=== PATIENT | female | born 1940 | race Caucasian/White ===

== ENCOUNTER → 2022-01-19 | Outpatient (CLI) | payer MEDICARE ==
--- NOTE | 2022-01-19 21:43 | CT ---
EXAMINATION TYPE: CT chest wo con DATE OF EXAM: 01/19/2022 COMPARISON: None available HISTORY: dyspnea CT DLP: 967.3 mGycm. Automated Exposure Control for Dose Reduction was Utilized. TECHNIQUE: CT scan of the thorax is performed without IV contrast using high-resolution technique wi th supine and prone imaging. FINDINGS: Central airways are normal course and caliber. No focal consolidations, pleural effusions, or pneumot horax. No areas of interlobular septal thickening or honeycombing. Small area of persistent groundgla ss opacity on prone and supine imaging in the left lower lobe which is still favored to represent ate lectasis. Cardiac size appears within normal limits. No pericardial effusion. Moderate coronary artery calcific ations. There are aortic annular and mitral annular calcifications. Moderate scattered atheroscleroti c calcifications of the thoracic aorta which appears of normal caliber. Main pulmonary artery appears of normal caliber. No mediastinal or axillary lymphadenopathy. IMPRESSION: 1. No evidence of interstitial lung disease. 2. No focal consolidation, pleural effusion, or pneumothorax.
== END | disposition home or self-care (01) ==
LOC: RADCTMAIN 17:07
PROVIDERS: ATTEND Internal Medicine Critical Care Medicine
DX: R06.00 Dyspnea, unspecified (principal)
CPT/HCPCS: 71250

== ENCOUNTER → 2023-02-23 | Outpatient (CLI) | payer MEDICARE ==
--- NOTE | 2023-02-24 06:53 | MM ---
Reason for Exam: Screening (asymptomatic). Last mammogram was performed 2 year(s) and 1 month(s) ago. Patient History: Menarche at age 12. First Full-Term at age 15. Left ovary removed at age 20. Postmenopausal. Breast cancer, left, age 72. 2011, Lumpectomy on the Left side. 2011, Radiation Therapy on the left side. Maternal grandmother had breast cancer, age 50. Prior Study Comparison: 06/13/2018 Bilateral Screening Mammogram, Unknown. 07/19/2019 Bilateral Screening Mammogram, Unknown. 01/26/2021 Bilateral Screening Mammogram, [place]. Tissue Density: There are scattered fibroglandular densities. Findings: Analyzed By CAD. Diminished size to the left breast with distortion superiorly consistent with known posttreatment changes redemonstrated. There are benign-appearing round, linear, and vascular calcifications bilaterally redemonstrated. Stable few small round and oval circumscribed masses in the right breast from several prior mammograms. There is no suspicious group of microcalcifications or new suspicious or enlarging mass in either breast. Overall Assessment: Benign, BI-RAD 2 Management: Screening Mammogram of both breasts in 1 year. . Patient should continue monthly self-breast exams. A clinical breast exam by your physician is recommended on an annual basis. This exam should not preclude additional follow-up of suspicious palpable abnormalities. Note on Marilee scores and lifetime risk: 1. A Marilee score greater than 3% is considered moderate risk. If this is the case, consider specialist referral to assess eligibility for a risk reducing agent. 2. If overall lifetime risk for the development of breast cancer is 20% or higher, the patient may qualify for future screening with alternating mammogram and breast MRI. Electronically signed and approved by: Edinson Alvarado M.D.
== END | disposition home or self-care (01) ==
LOC: RADMAMWWP 10:51
PROVIDERS: ATTEND Family Medicine
DX: Z12.31 Encounter for screening mammogram for malignant neoplasm of breast (principal); Z80.3 Family history of malignant neoplasm of breast; Z78.0 Asymptomatic menopausal state
CPT/HCPCS: 77063; 77067

== ENCOUNTER 2024-03-20 09:46 | Day surgery (SDC) | payer MEDICARE ==
[~2024-03-20 09:46] MED LIST: ALPRAZolam 0.5 MG TAB PO PRN; HEPARIN SODIUM,PORCINE (1 ML) 2,500 UNIT in SODIUM CHLORIDE 0.9% 250 ML IRRIGATION PRN; HEPARIN SODIUM,PORCINE 10,000 UNIT in SODIUM CHLORIDE 0.9% 1,000 ML IRRIGATION PRN; NITROGLYCERIN SL TABS 0.4 MG TAB SUBLINGUAL PRN
[2024-03-20] MEDS: SODIUM CHLORIDE 0.9% 1,000 ML in EMPTY BAG 1 BAG IV SCH (10:09)
[2024-03-20] MEDS: ASPIRIN 325 MG TAB PO STA (10:10)
[2024-03-20] MEDS: IV FLUID CONTINUATION 1,000 ML IV ONE ×2 (10:14→11:48)
[2024-03-20 11:17] LABS: Basophils % (A) 1 %; Eosinophils # (A) 0.4 k/uL (0-0.7); Eosinophils % (A) 4 %; HCT 44.8 % (34.0-46.0); HGB 14.4 gm/dL (11.4-16.0); Lymphocytes # (A) 2.7 k/uL (1.0-4.8); Lymphocytes % (A) 31 %; MCH 29.2 pg (25.0-35.0); MCHC 32.2 g/dL (31.0-37.0); MCV 90.6 fL (80.0-100.0); Monocytes # (A) 0.8 k/uL (0-1.0); Monocytes % (A) 9 %; Neutrophils # (A) 4.3 k/uL (1.3-7.7); Neutrophils % (A) 51 %; Platelet Count 116 k/uL (150-450); Poikilocytosis Slight; RBC 4.94 m/uL (3.80-5.40); RDW 14.6 % (11.5-15.5); WBC 8.5 k/uL (3.8-10.6)
[2024-03-20 11:21] LABS: African American GFR (CKD) 61 (>60 ml/min/1.73 sqM); Anion Gap 9 mmol/L; Blood Urea Nitrogen 17 mg/dL (7-17); Calcium 9.9 mg/dL (8.4-10.2); Carbon Dioxide 26 mmol/L (22-30); Chloride 105 mmol/L (98-107); Glucose 121 mg/dL (74-99); Non-African American GFR(CKD) 53 (>60 ml/min/1.73 sqM); Potassium 3.7 mmol/L (3.5-5.1); Sodium 140 mmol/L (137-145)
[2024-03-20] MEDS ORDERED: LIDOCAINE 1% INJ 10MG/ML (20 ML MDV) ONE (11:34)
[2024-03-20] MEDS ORDERED: VERAPAMIL 2.5 MG/ML 2 ML AMP ONE ×2 (11:34→12:41)
[2024-03-20] MEDS ORDERED: HEPARIN SODIUM 1,000 UN/ML (10ML VL) ONE (11:35)
[2024-03-20] MEDS ORDERED: fentaNYL (PF) 50 MCG/ML 2 ML AMP ONE ×2 (11:35→12:47)
[2024-03-20] MEDS: fentaNYL (PF) 50 MCG/1 ML VIAL IVP ONE ×2 (11:44→11:45)
[2024-03-20] MEDS: BENZOCAINE SPRAY 1 CAN MUCOUS MEM ONE (11:44)
[2024-03-20] MEDS: MIDAZOLAM 2 MG/2 ML VIAL IVP ONE ×3 (11:44→11:49)
--- NOTE | 2024-03-20 12:00 | P.TEE ---
Description of Procedure(s): Procedure performed: Transesophageal Echocardiogram with color flow doppler, pulsed wave doppler and continuous wave doppler, moderate conscious sedation Moderate conscious sedation: Moderate conscious sedation was supplied with direct supervision of myself using Versed and Fentanyl. Complications: none Indications: Aortic stenosis PROCEDURE: After the risks, benefits and alternatives of the above mentioned procedure was explained in detail with the patient, informed consent was obtained. Patient was brought to the lab in a fasting state. Patient was given IV Versed and Fentanyl for sedation. The throat was sprayed with Hurricane to anesthetize the throat. A lubricated Omni probe was then introduced into the esophagus and stomach and multiple views were obtained. 2D echo with color flow doppler, pulsed wave doppler and continuous wave doppler was utilized. Agitated saline bubbles were injected to assess for any intra-atrial shunt. The probe was then removed. Patient tolerated the procedure well. Patient was transferred to the post procedure area in stable and satisfactory condition. FINDINGS: 1. The aortic valve is tricuspid with severe aortic stenosis with aortic valve area 0.6 cm2 by planimetry. 2. The mitral valve appears be normal with mild regurgitation. 3. Tricuspid valve appears to be normal. 4. The interatrial septum is intact. No evidence of PFO. 5. Left atrial appendage is free of clot. 6. Left ventricular EF 55%
[2024-03-20] MEDS: LIDOCAINE 1% INJ 10MG/ML (20 ML MDV) SQ ONE (12:06)
[2024-03-20] MEDS: VERAPAMIL SYRINGE (5 MG/10 ML) INTRAARTER ONE ×2 (12:09→12:53)
[2024-03-20] MEDS: HEPARIN SODIUM 1,000 UN/ML (10ML VL) IV ONE (12:10)
[2024-03-20] MEDS: IOPAMIDOL-370 100ML BTL INJ ONE ×2 (12:38→13:32)
[2024-03-20] MEDS: fentaNYL (PF) 50 MCG/ML 2 ML AMP IVP ONE (12:49)
[2024-03-20] MEDS: PHENYLEPHRINE-0.9% NACL SYG 1,000 MCG/10 ML SYRINGE IVP ONE (12:57)
[2024-03-20] MEDS ORDERED: ACETAMINOPHEN TAB 325 MG TAB PO PRN (14:13)
[2024-03-20] MEDS ORDERED: MAG HYDROX/AL HYDROX/SIMETH 30 ML CUP PO PRN (14:16)
[2024-03-20] MEDS ORDERED: ATROPINE SULFATE 0.1 MG/ML 10ML SYRINGE IV PRN (14:16)
[2024-03-20] MEDS ORDERED: ZOLPIDEM 5 MG TAB PO PRN (14:16)
[2024-03-20] MEDS ORDERED: RX INFO: IV CONTRAST WAS GIVEN 1 EACH MISC MISCELLANE PRN (14:16)
--- NOTE | 2024-03-20 16:01 | P.PRCINT ---
Percutaneous Coronary Int. - Percutaneous Coronary Intervention Percutaneous Coronary Intervention: PROCEDURES PERFORMED: Bilateral coronary angiography, ultrasound guided arterial access, iFR left main, IVUS left main, PCI left main with a 4.5 x 12mm Xience TOBY, post dilated with a 4.5mm NC balloon INDICATION: Severe aortic stenosis, high risk for surgery, worsening dyspnea over last 6-8 weeks, NYHA class 3 symptoms. CONSENT:I have discussed the risks, benefits and alternative therapies for the above-mentioned procedure and for both sedation/analgesia as well as necessary blood product administration, if indicated, as they pertain to this patient. The patient has indicated understanding and acceptance of the risks and procedures discussed. PROCEDURE: After the risks, benefits and alternatives of the above mentioned procedure explained in detail with the patient, informed consent was obtained. Patient was taken to the catheterization lab and prepped and draped in usual fashion. Ultrasound guidance was used to assess for arterial access. 1% lidocaine was used to anesthetize the right radial artery. A 6-Gambian sheath was placed in the right radial artery using modified Seldinger technique and ultrasound guidance. Right coronary angiography was performed with a 5-Gambian FR5 catheter in various views. there was significant difficulty engaging the left main with a FL 3.5, FL 3.0, CLS 3.5, CLS 3.0 and [place] catheter. Subselective images were obtained. Eventually able to engage with the help of a BMW wire and a 6-Gambian FL 3.0 guide. Images showed a significant 90% left main stenosis. Given patient is high risk for surgery, worsening unstable symptoms in the last few weeks, difficulty previously engaging the left main and currently left main is engaged with a wire in the LAD as well as the lesion being ostial left main amenable to stenting, the decision was made to perform PCI. Heparin was given. The decision was made to perform iFR for confirmation. A 0.014 pressure wire was advanced in the proximal left main and normalize. It was then advanced 1 cm distal end of LAD and was noted to be abnormal at 0.77. Next balloon angioplasty was performed of the left main with a 3.0 noncompliant balloon. Intervascular ultrasound was performed which showed continued significant stenosis despite angioplasty with a minimal luminal area of 3.7 mm. Reference vessel is 4.5 mm diameter. Therefore balloon angioplasty was performed with a 4.0 noncompliant balloon. Next a 4.5 x 12 mm Xience TOBY was placed at the origin of the left main. The stent was then postdilated with a 4.5 noncompliant balloon. Repeat intervascular ultrasound showed well-expanded stent with no significant residual stenosis. Final angiograms were performed. Per intervention there is 90% stenosis and RADHA-3 flow and postintervention there was less than 10% stenosis with RADHA 3 flow. The right radial sheath was removed and a TR band was placed with hemostasis achieved. The patient tolerated the procedure well. Patient was transported back to the post catheterization holding area in stable condition. Conscious Sedation: Patient was monitored under the direct supervision of myself for conscious sedation using Versed and fentanyl for a total duration of 88 minutes HEMODYNAMICS: Ao: 93/61 SELECTIVE CORONARY ARTERIOGRAPHY: LEFT MAIN: The left main is a large caliber vessel which trifurcates into the LAD, ramus and circumflex. There is an ostial left main 90% stenosis. LEFT ANTERIOR DESCENDING CORONARY ARTERY: LAD is a large caliber vessel which wraps around to the apex. There are mild luminal irregularities with a 20% mid LAD stenosis. RAMUS INTERMEDIUS: The ramus is a moderate caliber vessel with mild luminal irregularities LEFT CIRCUMFLEX CORONARY ARTERY: Left circumflex is a moderate caliber vessel with mild luminal irregularites RIGHT CORONARY ARTERY: The right coronary artery is a large caliber vessel which gives off a PDA and PLV branch and is the dominant vessel. There is diffuse calcification with 10-20% stenosis FINAL IMPRESSION: 1. CAD as described above with 90% left main stenosis and otherwise mild luminal irregularities. 2. Abnormal iFR left main and IVUS left main 3. S/p PCI left main with a 4.5 x 12mm Xience TOBY, post dilated with a 4.5mm NC balloon PLAN: 1. Aggressive risk factor modification per most recent ACC/AHA guidelines. 2. Continue dual antiplatelets with aspirin and Plavix for 6 months 3. Further workup for TAVR
[2024-03-20] MEDS: carvediloL 12.5 MG TAB PO SCH (16:18)
[2024-03-20] MEDS: SODIUM CHLORIDE 0.9% 1,000 ML IV SCH (16:18)
[2024-03-20] MEDS ORDERED: PRAVASTATIN SODIUM 40 MG TAB PO SCH (21:00)
[2024-03-21] MEDS: DAPAGLIFLOZIN PROPANEDIOL 10 MG TABLET PO SCH (08:30)
[2024-03-21] MEDS: ASPIRIN 81 MG PO SCH (08:30)
[2024-03-21] MEDS: ATORVASTATIN 40 MG TAB PO SCH (08:30)
[2024-03-21] MEDS: FUROSEMIDE 20 MG TAB PO SCH (08:30)
[2024-03-21] MEDS: CLOPIDOGREL 75 MG TAB PO SCH (08:30)
[2024-03-21] MEDS: LOSARTAN 50 MG TAB PO SCH (08:30)
[2024-03-21] MEDS: PANTOPRAZOLE 40 MG TABLET PO SCH (08:30)
[2024-03-21] MEDS: allopurinoL 100 MG TAB PO SCH (08:30)
[2024-03-21] MEDS: ALPRAZolam 0.25 MG TAB PO PRN (08:32)
[2024-03-21 10:24] LABS: African American GFR (CKD) 75 (>60 ml/min/1.73 sqM); Anion Gap 9 mmol/L; Blood Urea Nitrogen 14 mg/dL (7-17); Calcium 8.9 mg/dL (8.4-10.2); Carbon Dioxide 23 mmol/L (22-30); Chloride 108 mmol/L (98-107); Glucose 123 mg/dL (74-99); Non-African American GFR(CKD) 65 (>60 ml/min/1.73 sqM); Potassium 3.6 mmol/L (3.5-5.1); Sodium 140 mmol/L (137-145)
[2024-03-21 11:01] LABS: Basophils % (A) 0 %; Eosinophils # (A) 0.2 k/uL (0-0.7); Eosinophils % (A) 4 %; HCT 39.6 % (34.0-46.0); HGB 12.6 gm/dL (11.4-16.0); Lymphocytes # (A) 1.6 k/uL (1.0-4.8); Lymphocytes % (A) 25 %; MCH 29.8 pg (25.0-35.0); MCHC 31.8 g/dL (31.0-37.0); MCV 93.6 fL (80.0-100.0); Mean Platelet Volume 8.6; Monocytes # (A) 0.5 k/uL (0-1.0); Monocytes % (A) 8 %; Neutrophils # (A) 3.8 k/uL (1.3-7.7); Neutrophils % (A) 60 %; RBC 4.23 m/uL (3.80-5.40); RDW 14.5 % (11.5-15.5); WBC 6.3 k/uL (3.8-10.6)
[2024-03-21 11:33] VITALS: BP 166/91; PULSE 72; RESP 18; TEMP 98
[2024-03-21] MEDS: FUROSEMIDE 10 MG/ML 4 ML VIAL IV STA (11:34)
[2024-03-21 11:50] VITALS: BMI 35.1
--- NOTE | 2024-03-21 13:12 | US ---
EXAMINATION TYPE: US carotid duplex BILAT DATE OF EXAM: 03/21/2024 COMPARISON: NONE CLINICAL INDICATION: Female, 83 years old with history of Preop TAVR; Hx TIA TECHNIQUE: Carotid duplex ultrasound examination. Indirect Doppler criteria was utilized. FINDINGS: EXAM MEASUREMENTS: RIGHT: Peak Systolic Velocity (PSV) cm/sec ----- Right CCA: 46.2 ----- Right ICA: 81.2 ----- Right ECA: 129.1 ICA/CCA ratio: 1.8 RIGHT: End Diastole cm/sec ----- Right CCA: 0.0 ----- Right ICA: 18.6 ----- Right ECA: 0.0 LEFT: Peak Systolic Velocity (PSV) cm/sec ----- Left CCA: 34.8 ----- Left ICA: 84.9 ----- Left ECA: 186.5 ICA/CCA ratio: 2.4 LEFT: End Diastole cm/sec ----- Left CCA: 7.8 ----- Left ICA: 26.7 ----- Left ECA: 13.7 VERTEBRALS (direction of flow): Right Vertebral: Antegrade Left Vertebral: Antegrade Rhythm: Normal FEATHER SAWYER NOTES: Plaque in bilateral bulbs extending into proximal ICA and ECA. Elevated left ECA velocity. IMPRESSION: Less than 50% stenosis of the bilateral carotid bifurcations. Criteria for Assigning % of Stenosis / Diameter reduction (Estimation based on the indirect measurements of the internal carotid artery velocities (ICA PSV). 1. Normal (no stenosis)=ICA PSV < 125 cm/s: ratio < 2.0: ICA EDV<40 cm/s. 2. Less than 50% stenosis=ICA PSV < 125 cm/s: ratio < 2.0: ICA EDV<40 cm/s. 3. 50 to 69% stenosis=ICA PSV of 125 to 230 cm/s: ration 2.0 ? 4.0: ICA EDV 40-100 cm/s. 4. Greater than 70% stenosis to near occlusion= ICA PSV > 230 cm/s: ratio > 4.0: ICA EDV > 100 cm/s. 5. Near occlusion= ICA PSV velocities may be low or undetectable: variable ratio and ICA EDV. 6. Total occlusion=unable to detect flow.
[2024-03-21 13:19] LABS: Platelet Count 94 k/uL (150-450)
[2024-03-21 13:45] LABS: ALT 14 U/L (4-34); AST 24 U/L (14-36); African American GFR (CKD) 60 (>60 ml/min/1.73 sqM); Albumin 3.8 g/dL (3.5-5.0); Alkaline Phosphatase 37 U/L (38-126); Anion Gap 6 mmol/L; Blood Urea Nitrogen 14 mg/dL (7-17); Calcium 8.8 mg/dL (8.4-10.2); Carbon Dioxide 24 mmol/L (22-30); Chloride 109 mmol/L (98-107); Glucose 161 mg/dL (74-99); INR 1.1 (<1.2); Non-African American GFR(CKD) 52 (>60 ml/min/1.73 sqM); Partial Thromboplastin Time 26.1 sec (22.0-30.0); Prothrombin Time 11.6 sec (10.0-12.5); Sodium 139 mmol/L (137-145); Total Bilirubin 1.1 mg/dL (0.2-1.3); Total Protein 6.1 g/dL (6.3-8.2)
[2024-03-21 13:49] LABS: Magnesium 1.6 mg/dL (1.6-2.3); Potassium 3.6 mmol/L (3.5-5.1)
[2024-03-21 13:54] LABS: NT-Pro-B-Type Natriuretic Pept 1910 pg/mL
--- NOTE | 2024-03-21 14:32 | XR ---
EXAMINATION TYPE: XR chest 2V DATE OF EXAM: 03/21/2024 1:33 PM CLINICAL INDICATION:Female, 83 years old with history of Preop TAVR; COMPARISON: None TECHNIQUE: XR chest 2V Frontal and lateral views of the chest. FINDINGS: Lungs/Pleura: No evidence of focal consolidation or pneumothorax. Blunting of the costophrenic angles is present posteriorly. Pulmonary vascularity: Mild pulmonary vascular congestion. Heart/mediastinum: Cardiomediastinal silhouette is unremarkable. Musculoskeletal: No acute osseous pathology. Other findings: None Lines/Tubes: IMPRESSION: Pulmonary vascular congestion with trace bilateral pleural effusions.
--- NOTE | 2024-03-21 15:03 | P.DS ---
Providers Attending physician: Anthony Son DO Consults: 03/20/24 14:17 Consult Physician Routine Consulting Provider: [facility] Consult Reason/Comments: Post Interventional Patient Do you want consulting provider notified?: Already Contacted Primary care physician: Bjorn Glass [facility] Hospital Course: Patient is a pleasant 83 yo female with history of severe and underwent JUANA which showed severe and LHC which showed left main severe stenosis and underwent ostial left main stenting. She was given IVF for renal protection hwoever became mildly SOB 03/21 morning and therefore was given additional IV Lasix which improved symtptoms. She was stable for DC 03/21 with outpt followup for TAVR Plan - Discharge Summary Discharge Rx Participant: No New Discharge Prescriptions: New Aspirin 81 mg PO DAILY #90 tab Continue Clopidogrel [Plavix] 75 mg PO DAILY carvediloL 12.5 mg PO BID Olmesartan [Benicar] 20 mg PO DAILY Acetaminophen [Tylenol] 325 mg PO Q4H PRN PRN Reason: Pain Pravastatin Sodium [Pravachol] 40 mg PO HS No Action allopurinoL 100 mg PO DAILY Furosemide [Lasix] 20 mg PO DAILY Calcium (Unk) 1 tab PO DAILY Vit K2(Unk) 1 tab PO DAILY Vit D (Unk) 1 tab PO DAILY Omeprazole 20 mg PO DAILY Fish Oil (Unk) 1 tab PO DAILY Dapagliflozin Propanediol [Farxiga] 10 mg PO DAILY Aspirin 325 mg PO ONCE Discharge Medication List Acetaminophen [Tylenol] 325 mg PO Q4H PRN 03/18/24 [History] Calcium (Unk) 1 tab PO DAILY 03/18/24 [History] Clopidogrel [Plavix] 75 mg PO DAILY 03/18/24 [History] Dapagliflozin Propanediol [Farxiga] 10 mg PO DAILY 03/18/24 [History] Fish Oil (Unk) 1 tab PO DAILY 03/18/24 [History] Furosemide [Lasix] 20 mg PO DAILY 03/18/24 [History] Olmesartan [Benicar] 20 mg PO DAILY 03/18/24 [History] Omeprazole 20 mg PO DAILY 03/18/24 [History] Pravastatin Sodium [Pravachol] 40 mg PO HS 03/18/24 [History] Vit D (Unk) 1 tab PO DAILY 03/18/24 [History] Vit K2(Unk) 1 tab PO DAILY 03/18/24 [History] allopurinoL 100 mg PO DAILY 03/18/24 [History] carvediloL 12.5 mg PO BID 03/18/24 [History] Aspirin 325 mg PO ONCE 03/20/24 [History] Aspirin 81 mg PO DAILY #90 tab 03/21/24 [Rx] Follow up Appointment(s)/Referral(s): Anthony Son DO [STAFF PHYSICIAN] - 1 Week (appt on 03/27/24 @ 11am with Lore) Patient Instructions/Handouts: Moderate Sedation (DC), After Radial Heart Catheterization (GEN), Transesophageal Echocardiogram (DC) Activity/Diet/Wound Care/Special Instructions: *NO LIFTING, PUSHING, OR PULLING ANYTHING OVER 5 POUNDS FOR 5 DAYS *NO DRIVING FOR 3 DAYS *YOU CAN REMOVE YOUR DRESSING TOMORROW BUT DO NOT SUBMERSE YOUR PUNCTURE SITE IN WATER FOR A FEW DAYS TO PREVENT INFECTION - SO NO TUB BATHS, POOLS, HOT TUBS, DISHES...ETC *ANY SIGNS OF BLEEDING (HARDNESS, SWELLING, OR EXCESSIVE BRUISING) HOLD DIRECT PRESSURE ON YOUR PUNCTURE SITE AND COME TO THE NEAREST EMERGENCY ROOM TO GET YOUR PUNCTURE SITE LOOKED AT - DO NOT DRIVE YOURSELF! EITHER CALL EMS OR HAVE SOMEONE DRIVE YOU!
[2024-03-21 19:33] LABS: Hepatitis A Antibody IgM Nonreactive (Nonreactive); Hepatitis B Core IgM Nonreactive (Nonreactive); Hepatitis B Surface Antigen Nonreactive (Nonreactive); Hepatitis C IgG Antibody Nonreactive (Nonreactive)
== END 2024-03-21 17:59 | disposition home or self-care (01) ==
LOC: CATHCVL 09:46 → 3SCARD 13:29 → CATHCVL 03-21 17:59
PROVIDERS: ATTEND Internal Medicine
DX: I25.10 Atherosclerotic heart disease of native coronary artery without angina pectoris (principal); I35.0 Nonrheumatic aortic (valve) stenosis; J90 Pleural effusion, not elsewhere classified; Z79.02 Long term (current) use of antithrombotics/antiplatelets; Z79.82 Long term (current) use of aspirin; Z79.84 Long term (current) use of oral hypoglycemic drugs; Z79.899 Other long term (current) drug therapy; Z86.73 Personal history of transient ischemic attack (TIA), and cerebral infarction without residual deficits; Z95.5 Presence of coronary angioplasty implant and graft
CPT/HCPCS: 94150; 93312; 93320; 93325; 92978; 93454; 93799; 83880; 80053; 80048 ×2; 80074; 84443; 83735; 85025 ×2; 85610; 85730; 87070; 83036; 71046; 93880; C9600; C1769 ×5; C1887 ×3; C1894; C1874; C1725 ×3; J2250; J1940; J2001; J3010 ×2; J1644; Q9967; J2371

== ENCOUNTER → 2024-04-02 | Outpatient (CLI) | payer MEDICARE ==
[2024-04-02 15:12] LABS: African American GFR (CKD) 48 (>60 ml/min/1.73 sqM); Blood Urea Nitrogen 20 mg/dL (7-17); Non-African American GFR(CKD) 42 (>60 ml/min/1.73 sqM)
== END | disposition home or self-care (01) ==
LOC: RADCTMAIN 14:03
PROVIDERS: ATTEND Thoracic Surgery (Cardiothoracic Vascular Surgery)
DX: I35.1 Nonrheumatic aortic (valve) insufficiency (principal)
CPT/HCPCS: 82565; 84520

== ENCOUNTER 2024-04-11 08:32 | Outpatient (CLI) | payer MEDICARE ==
[2024-04-11 09:36] LABS: African American GFR (CKD) 58 (>60 ml/min/1.73 sqM); Blood Urea Nitrogen 15 mg/dL (7-17); Non-African American GFR(CKD) 50 (>60 ml/min/1.73 sqM)
--- NOTE | 2024-04-11 13:31 | CT ---
EXAMINATION TYPE: CT TAVR Planning DATE OF EXAM: 04/11/2024 HISTORY: Non Rheumatic aortic valve insufficiency CT DLP: 2496.1 mGycm Automated Exposure Control for Dose Reduction was Utilized. CONTRAST: CT scan of the chest, abdomen and pelvis is performed without and with IV Contrast, patient injected with 125 ml mL of Isovue 370. COMPARISON: The TECHNIQUE: Helical imaging obtained through the chest, abdomen and pelvis during arterial phase arelis gaye administration of radiographic contrast intravenously. FINDINGS: See report from [facility] regarding preprocedural planning CHEST: Lower Neck and Thyroid: No significant findings Lungs: Mild right basilar compressive atelectasis. Incidental azygos lobe and fissure. Central Airway: No significant findings Pleura: Small right-sided pleural effusion. Pulmonary Arteries: No significant findings Heart and Pericardium: Mild cardiomegaly. Lymph Nodes: No significant findings Mediastinum & Esophagus: No significant findings AV Calcification Severity: Moderate ABDOMEN/PELVIS: Please note arterial phase of the imaging limits detailed evaluation of the solid abdominal organs. Liver: No significant findings Spleen: No significant findings Kidneys: No significant findings Adrenal Glands: No significant findings Pancreas: No significant findings Gallbladder: No significant findings Bowel and Mesentery: No significant findings Lymph Nodes: No significant findings Urinary Bladder: No significant findings Pelvic Organs: Septated cystic mass right ovary and adnexa measuring 10.5 cm in greatest dimension. I n a patient of this age. Neoplasm is not excluded. The uterus is atrophic. No left ovarian masses see n. Other: No significant findings Other Lines/Tubes/Devices/Hardware: None IMPRESSION: 1. Moderate calcific changes of the aortic valve. 2.Septated cystic mass right ovary and adnexa measuring 10.5 cm in greatest dimension. In a patient o f this age. Neoplasm is not excluded.
== END 2024-04-11 15:30 | disposition home or self-care (01) ==
LOC: RADCTMAIN 08:32
PROVIDERS: ATTEND Thoracic Surgery (Cardiothoracic Vascular Surgery)
DX: I35.1 Nonrheumatic aortic (valve) insufficiency (principal); N83.201 Unspecified ovarian cyst, right side
CPT/HCPCS: 82565; 84520; 71275; 74174; Q9967

== ENCOUNTER → 2024-05-03 | Outpatient (CLI) | payer MEDICARE | END | disposition home or self-care (01) | LOC: LABWHC1 14:42 | PROVIDERS: ATTEND Family Medicine | DX: Z01.812 Encounter for preprocedural laboratory examination (principal); I35.0 Nonrheumatic aortic (valve) stenosis; Z79.01 Long term (current) use of anticoagulants; Z79.899 Other long term (current) drug therapy | CPT/HCPCS: 36415; 80053; 85025; 85610; 85730; 86850; 86900; 86901 ==

== ENCOUNTER 2024-05-08 05:47 | Inpatient (IN) | payer MEDICARE ==
[2024-05-08] MEDS ORDERED: LIDOCAINE 1% INJ 10MG/ML (20 ML MDV) ONE (07:51)
[2024-05-08] MEDS ORDERED: PROPOFOL 10 MG/ML 20 ML VIAL IV ONE (07:51)
[2024-05-08] MEDS ORDERED: MIDAZOLAM 2 MG/2 ML VIAL ONE (07:51)
[2024-05-08] MEDS ORDERED: HEPARIN SODIUM,PORCINE 10,000 UNIT/ML 1 ML VIAL ONE (07:51)
[2024-05-08] MEDS ORDERED: ROCURONIUM 10 MG/ML (5 ML VIAL) IV ONE (07:51)
[2024-05-08] MEDS ORDERED: PROTAMINE SULFATE 10 MG/ML 5 ML VIAL ONE (07:51)
[2024-05-08] MEDS ORDERED: fentaNYL (PF) 50 MCG/ML 2 ML AMP ONE (07:51)
[2024-05-08] MEDS ORDERED: VASOPRESSIN 20 UNIT/ML 1 ML VIAL ONE (07:51)
[2024-05-08] MEDS ORDERED: NEOSTIGMINE 1 MG/ML 10 ML VIAL ONE (07:51)
[2024-05-08] MEDS ORDERED: SUCCINYLCHOLINE CHLORIDE 200 MG/10 ML VIAL IV ONE (07:51)
[2024-05-08] MEDS ORDERED: GLYCOPYRROLATE 0.2 MG/ML 2 ML VIAL ONE (07:51)
[2024-05-08] MEDS: IOPAMIDOL-370 100ML BTL INJ ONE (08:24)
[2024-05-08] MEDS ORDERED: DAPAGLIFLOZIN PROPANEDIOL 10 MG TABLET ONE (18:02)
[2024-05-08] MEDS ORDERED: PRAVASTATIN SODIUM 20 MG TAB ONE (20:18)
[2024-05-08] MEDS ORDERED: HEPARIN SODIUM,PORCINE 5,000 UNIT/ML 1 ML VIAL ONE (20:18)
[2024-05-08] MEDS ORDERED: carvediloL 12.5 MG TAB ONE (20:18)
[2024-05-08] MEDS ORDERED: SENNOSIDES-DOCUSATE SODIUM 1 EACH TAB PO ONE (20:18)
[2024-05-08] MEDS ORDERED: ACETAMINOPHEN TAB 325 MG TAB ONE (20:18)
[2024-05-08] MEDS ORDERED: ceFAZolin 1,000 MG VIAL ONE (23:59)
[2024-05-08] MEDS ORDERED: LACTATED RINGERS 1,000 ML BAG ONE (23:59)
[2024-05-08] MEDS ORDERED: SODIUM CHLORIDE 0.9% 50 ML BAG IV ONE (23:59)
[2024-05-09] MEDS ORDERED: fentaNYL (PF) 50 MCG/ML 2 ML AMP ONE (02:31)
[2024-05-09] MEDS ORDERED: LIDOCAINE 1% INJ 10MG/ML (20 ML MDV) ONE (02:31)
[2024-05-09] MEDS ORDERED: MIDAZOLAM 2 MG/2 ML VIAL ONE (02:34)
[2024-05-09] MEDS ORDERED: HEPARIN SODIUM,PORCINE 5,000 UNIT/ML 1 ML VIAL ONE ×3 (05:44→20:49)
[2024-05-09] MEDS ORDERED: ACETAMINOPHEN TAB 325 MG TAB ONE ×2 (06:04→10:54)
[2024-05-09] MEDS ORDERED: DAPAGLIFLOZIN PROPANEDIOL 10 MG TABLET ONE (10:03)
[2024-05-09] MEDS ORDERED: FUROSEMIDE 20 MG TAB ONE (10:03)
[2024-05-09] MEDS ORDERED: PANTOPRAZOLE 40 MG TABLET PO ONE (10:03)
[2024-05-09] MEDS ORDERED: CLOPIDOGREL 75 MG TAB ONE (10:03)
[2024-05-09] MEDS ORDERED: ASPIRIN 81 MG ONE (10:03)
[2024-05-09] MEDS ORDERED: allopurinoL 100 MG TAB ONE (10:24)
[2024-05-09] MEDS ORDERED: ALPRAZolam 0.25 MG TAB ONE ×2 (10:43→20:49)
[2024-05-09] MEDS ORDERED: SENNOSIDES-DOCUSATE SODIUM 1 EACH TAB PO ONE (20:49)
[2024-05-09] MEDS ORDERED: LOSARTAN 50 MG TAB ONE (23:59)
[2024-05-09] MEDS ORDERED: ceFAZolin 1,000 MG VIAL ONE (23:59)
[2024-05-09] MEDS ORDERED: PRAVASTATIN SODIUM 20 MG TAB ONE (23:59)
[2024-05-09] MEDS ORDERED: SODIUM CHLORIDE 0.9% 50 ML BAG IV ONE (23:59)
[2024-05-10] MEDS ORDERED: POTASSIUM CHLORIDE ER 20 MEQ TAB.ER PO ONE ×2 (05:38→23:59)
[2024-05-10] MEDS ORDERED: FUROSEMIDE 10 MG/ML 4 ML VIAL ONE (09:03)
[2024-05-10] MEDS ORDERED: LIDOCAINE 1% INJ 10MG/ML (20 ML MDV) ONE ×2 (10:38→11:24)
[2024-05-10] MEDS ORDERED: fentaNYL (PF) 50 MCG/ML 2 ML AMP ONE ×2 (10:56→11:35)
[2024-05-10] MEDS ORDERED: MIDAZOLAM 2 MG/2 ML VIAL ONE (10:56)
[2024-05-10] MEDS ORDERED: HEPARIN SODIUM,PORCINE 5,000 UNIT/ML 1 ML VIAL ONE ×2 (21:20→23:59)
[2024-05-10] MEDS ORDERED: carvediloL 12.5 MG TAB ONE (21:20)
[2024-05-10] MEDS ORDERED: ACETAMINOPHEN TAB 325 MG TAB ONE ×2 (22:55→23:59)
[2024-05-10] MEDS ORDERED: LOSARTAN 50 MG TAB ONE (23:59)
[2024-05-10] MEDS ORDERED: PRAVASTATIN SODIUM 20 MG TAB ONE (23:59)
[2024-05-10] MEDS ORDERED: IPRATROPIUM-ALBUTEROL 3 ML NEB ONE (23:59)
[2024-05-10] MEDS ORDERED: PANTOPRAZOLE 40 MG TABLET PO ONE (23:59)
[2024-05-10] MEDS ORDERED: CLOPIDOGREL 75 MG TAB ONE (23:59)
[2024-05-10] MEDS ORDERED: DAPAGLIFLOZIN PROPANEDIOL 10 MG TABLET ONE (23:59)
[2024-05-10] MEDS ORDERED: ASPIRIN 81 MG ONE (23:59)
[2024-05-10] MEDS ORDERED: allopurinoL 100 MG TAB ONE (23:59)
[2024-05-11] MEDS ORDERED: HEPARIN SODIUM,PORCINE 5,000 UNIT/ML 1 ML VIAL ONE ×3 (06:08→19:58)
[2024-05-11] MEDS ORDERED: LOSARTAN 50 MG TAB ONE ×2 (08:46→23:59)
[2024-05-11] MEDS ORDERED: PRAVASTATIN SODIUM 20 MG TAB ONE (08:46)
[2024-05-11] MEDS ORDERED: allopurinoL 100 MG TAB ONE (08:47)
[2024-05-11] MEDS ORDERED: ASPIRIN 81 MG ONE (08:47)
[2024-05-11] MEDS ORDERED: carvediloL 12.5 MG TAB ONE ×2 (08:47→19:58)
[2024-05-11] MEDS ORDERED: DAPAGLIFLOZIN PROPANEDIOL 10 MG TABLET ONE (08:47)
[2024-05-11] MEDS ORDERED: CLOPIDOGREL 75 MG TAB ONE (08:47)
[2024-05-11] MEDS ORDERED: PANTOPRAZOLE 40 MG TABLET PO ONE (08:47)
[2024-05-11] MEDS ORDERED: FUROSEMIDE 20 MG TAB ONE (08:47)
[2024-05-11] MEDS ORDERED: ACETAMINOPHEN TAB 325 MG TAB ONE (12:27)
[2024-05-11] MEDS ORDERED: FERROUS SULFATE 325 MG TAB PO ONE (19:58)
[2024-05-11] MEDS ORDERED: ASCORBIC ACID 500 MG TAB ONE (19:58)
[2024-05-11] MEDS ORDERED: SENNOSIDES-DOCUSATE SODIUM 1 EACH TAB PO ONE (20:24)
[2024-05-11] MEDS ORDERED: IPRATROPIUM-ALBUTEROL 3 ML NEB ONE ×2 (23:59)
[2024-05-12] MEDS ORDERED: ACETAMINOPHEN TAB 325 MG TAB ONE ×3 (00:54→20:42)
[2024-05-12] MEDS ORDERED: HEPARIN SODIUM,PORCINE 5,000 UNIT/ML 1 ML VIAL ONE ×3 (06:20→20:42)
[2024-05-12] MEDS ORDERED: IPRATROPIUM-ALBUTEROL 3 ML NEB ONE ×3 (07:50→23:59)
[2024-05-12] MEDS ORDERED: PANTOPRAZOLE 40 MG TABLET PO ONE (08:58)
[2024-05-12] MEDS ORDERED: ASCORBIC ACID 500 MG TAB ONE ×2 (08:58→20:42)
[2024-05-12] MEDS ORDERED: CLOPIDOGREL 75 MG TAB ONE (08:58)
[2024-05-12] MEDS ORDERED: PRAVASTATIN SODIUM 20 MG TAB ONE (08:58)
[2024-05-12] MEDS ORDERED: LOSARTAN 50 MG TAB ONE ×2 (08:58→23:59)
[2024-05-12] MEDS ORDERED: ASPIRIN 81 MG ONE (08:58)
[2024-05-12] MEDS ORDERED: allopurinoL 100 MG TAB ONE (08:59)
[2024-05-12] MEDS ORDERED: FERROUS SULFATE 325 MG TAB PO ONE ×2 (08:59→20:42)
[2024-05-12] MEDS ORDERED: FUROSEMIDE 20 MG TAB ONE (08:59)
[2024-05-12] MEDS ORDERED: carvediloL 12.5 MG TAB ONE ×2 (08:59→20:42)
[2024-05-12] MEDS ORDERED: DAPAGLIFLOZIN PROPANEDIOL 10 MG TABLET ONE (08:59)
[2024-05-13] MEDS ORDERED: ACETAMINOPHEN TAB 325 MG TAB ONE (01:55)
[2024-05-13] MEDS ORDERED: IPRATROPIUM-ALBUTEROL 3 ML NEB ONE (05:09)
[2024-05-13] MEDS ORDERED: HEPARIN SODIUM,PORCINE 5,000 UNIT/ML 1 ML VIAL ONE (05:16)
[2024-05-13] MEDS ORDERED: ASCORBIC ACID 500 MG TAB ONE (08:27)
[2024-05-13] MEDS ORDERED: bisacodyL 10 MG SUPP RECTAL ONE ×2 (08:28→08:59)
[2024-05-13] MEDS ORDERED: FUROSEMIDE 10 MG/ML 4 ML VIAL ONE (08:28)
[2024-05-13] MEDS ORDERED: PANTOPRAZOLE 40 MG TABLET PO ONE (08:28)
[2024-05-13] MEDS ORDERED: POTASSIUM CHLORIDE ER 20 MEQ TAB.ER PO ONE (08:28)
[2024-05-13] MEDS ORDERED: LOSARTAN 50 MG TAB ONE ×2 (08:28→08:36)
[2024-05-13] MEDS ORDERED: ASPIRIN 81 MG ONE ×2 (08:28→08:31)
[2024-05-13] MEDS ORDERED: PRAVASTATIN SODIUM 20 MG TAB ONE (08:28)
[2024-05-13] MEDS ORDERED: CLOPIDOGREL 75 MG TAB ONE (08:28)
[2024-05-13] MEDS ORDERED: carvediloL 12.5 MG TAB ONE (08:29)
[2024-05-13] MEDS ORDERED: FERROUS SULFATE 325 MG TAB PO ONE (08:29)
[2024-05-13] MEDS ORDERED: allopurinoL 100 MG TAB ONE (08:29)
[2024-05-13] MEDS ORDERED: DAPAGLIFLOZIN PROPANEDIOL 10 MG TABLET ONE (08:29)
--- NOTE | 2024-06-05 15:13 | XR ---
Patient Tami Mejia ID [id number] Order # EXAMINATION TYPE: XR chest 1V DATE OF EXAM: 05/08/2024 COMPARISON: No comparison on downtime PACS INDICATION: Post TAVR TECHNIQUE: Single frontal view of the chest is obtained. FINDINGS: The heart size is mildly prominent. Post TAVR is evident. The pulmonary vasculature is somewhat prominent. The lungs are clear. No suspicious consolidations. IMPRESSION: 1. Correlate for mild volume overload. 2. Mild cardiomegaly. 3. Post aortic valve replacement, TAVR
--- NOTE | 2024-06-11 07:53 | XR ---
Patient Tami Mejia ID [id number] Order # EXAMINATION TYPE: XR chest 1V DATE OF EXAM: 05/10/2024 COMPARISON: No comparison available on downtime PACS. INDICATION: post TAVR TECHNIQUE: Single frontal view of the chest is obtained. FINDINGS: The heart size is normal. The pulmonary vasculature is normal. Some mild increased lung markings at the left base. Correlate for atelectasis. Early pneumonia could be considered. Post aortic valve replacement evident. IMPRESSION: 1. Mild increased lung markings at the left base. Correlate for atelectasis or early pneumonia. Follo w-up can be performed. 2. Status post TAVR
--- NOTE | 2024-06-11 09:26 | XR ---
Site ID [facility] Patient Tami Mejia ID [id number] Order # Procedure CXR 1V EXAMINATION TYPE: XR chest 1V DATE OF EXAM: 05/09/2024 9:23 AM CLINICAL INDICATION: Post-R COMPARISON: THIS EXAM WAS READ DURING PACS DOWNTIME, NO PRIORS AVAILABLE. TECHNIQUE: XR chest 1V Frontal view of the chest. FINDINGS: Lungs/Pleura: There is no evidence of pleural effusion, focal consolidation, or pneumothorax. Pulmonary vascularity: Minimal interstitial prominence. Heart/mediastinum: Cardiomediastinal silhouette is unremarkable. Post aortic valve repair changes. Musculoskeletal: No acute osseous pathology. IMPRESSION: Postop Changes with mild pulmonary edema.
--- NOTE | 2024-06-11 13:35 | XR ---
Patient: Tami Mejia Ordering Physician: Unknown, Unknown ID: [id number] Phone, Pager: Phone: N/A Pager: N/A : [phone] Age/Gender: 83Y, F Primary Location: N/A Procedure: CHEST-1V Study Taz e: 05/13/2024 6:59:00 AM EXAMINATION TYPE: XR chest 1V DATE OF EXAM: 05/14/2024 HISTORY: Shortness of breath. COMPARISON: None. TECHNIQUE: Single view of the chest is submitted. FINDINGS: Demonstrated are scattered senescent parenchymal change. Increased density left medial lung base which may reflect atelectasis or pneumonia. The heart is stable. Hilar and mediastinal structures are within normal limits. Degenerative changes are seen of the dorsal spine. IMPRESSION: 1. Increased density left medial lung base which may reflect atelectasis or pneumonia.
--- NOTE | 2024-06-11 15:43 | XR ---
Patient Tami Mejia ID [id number] Order # EXAMINATION TYPE: XR chest 2V DATE OF EXAM: 05/11/2024 COMPARISON: No comparison available on downtime PACS. INDICATION: Lead placement check TECHNIQUE: Frontal and lateral views of the chest are obtained. FINDINGS: The heart size is normal. The pulmonary vasculature is somewhat prominent. There is likely lower lobe infiltrate. Small anterior pleural effusions present on the lateral projec tion. There is placement of a pacemaker with 2 leads which have normal orientation. Prior TAVR. IMPRESSION: 1. Correlate for underlying overload. 2. Small pleural effusion and posterior infiltrate. Follow-up recommended. 3. No pneumothorax post pacemaker placement.
--- NOTE | 2024-06-11 15:52 | XR ---
Patient Tami Mejia ID [id number] Order # EXAMINATION TYPE: XR chest 1V portable DATE OF EXAM: 05/10/2024 COMPARISON: No comparison available on downtime PACS. INDICATION: Line placement TECHNIQUE: Single frontal view of the chest is obtained. FINDINGS: The heart size is mildly prominent. The pulmonary vasculature is prominent. There is a infiltrate in the right apex. Correlate for pneumonia. Pacemaker overlies left chest. 2 leads are present typical appearance. There is a prior TAVR. IMPRESSION: 1. Correlate provided overload and CHF. 2. Left upper lobe infiltrate. Correlate for pneumonia. 3. No pneumothorax. Left-sided 2-lead pacemaker with typical orientation.
--- NOTE | 2024-06-14 14:31 | P.OP ---
Date of Procedure: 05/08/24 Preoperative Diagnosis: Tricuspid calcific aortic stenosis Postoperative Diagnosis: Same Procedure(s) Performed: Transcatheter aortic valve replacement via percutaneous right transfemoral approach with 26 mm Hancock STAR S3 valve Implants: 26 mm Hancock STAR 3 valve Anesthesia: GETA Surgeon: Gael Gooden (Cardiovascular surgeon) Rotary Swaging Machine Operator #1: Romero Luna (First clam treader) Rotary Swaging Machine Operator #2: Anthony Son (Second clam treader) Estimated Blood Loss (ml): 20 IV fluids (ml): 1,000 Urine output (ml): 0 Pathology: none sent Condition: stable Disposition: PACU Indications for Procedure: 83-year-old female with symptomatic severe tricuspid aortic stenosis. She was seen in the high risk valve clinic and felt to be appropriate for transcatheter aortic valve replacement after workup. She was felt to be high risk for surgical aortic valve replacement. Elective procedure was scheduled. Operative Findings: There was an approximately 45 mm gradient across the aortic valve. Valve was heavily calcified. TAVR valve was deployed at 7030. This proceeded uneventfully. Postoperative JUANA showed good expansion of the valve with no evidence of paravalvular leak and no aortic insufficiency had minimal gradient. Completion angiography showed excellent closure of the right femoral artery. Description of Procedure: Patient was brought to the cardiac catheterization laboratory and placed supine on the table. General anesthesia was induced. Patient was intubated. JUANA probe was placed. Patient was appropriately positioned. The anterior torso and bilateral groins were sterilely prepped and draped. Bilateral femoral arterial access was obtained by Dr. Son under ultrasound guidance. On the right a 7 Paragu[place] sheath was placed. On the left a long 6 [place] sheath was advanced into the descending thoracic aorta and through this a pigtail catheter was advanced into the right coronary sinus of Valsalva. A left femoral venous sheath was placed and a transvenous pacer was advanced into the apex of the right ventricle. 2 Perclose devices were placed in the right femoral artery and this was upsized to an 8 [place]aguayan sheath. This was further upsized to a 14 [place] sheath over a stiff wire and the patient was systemically heparinized. ACT's were maintained greater than 250 during procedure. Aortic valve was crossed from the right and a pigtail catheter positioned at the apex of the ventricle. Transvalvular gradients were measured. A safari wire was placed at the apex of the ventricle. A 26 STAR 3 valve had been prepared on the back table and was brought up onto the field. It was advanced through the sheath over the wire into the descending thoracic aorta. The balloon was pulled back into the valve and positioned appropriately. The catheter was curved and brought around the ascending aorta and across the aortic valve. Pusher was pulled back. The valve was positioned appropriately across the root of the aorta with the help of root angiography through the pigtail. The valve was then deployed under rapid ventricular pacing. This proceeded uneventfully. On completion of the valve deployment, pacer was turned down and the deployment system was pulled back through the valve into the descending thoracic aorta. The valve was eexamined with JUANA with findings as noted above. We decided to except the deployment of the valve. The valve deployment system was removed from the sheath. Heparin was reversed with protamine. The sheath was removed and the right femoral artery sealed with the 2 Perclose devices. Completion angiography demonstrated good flow through the femoral artery with no evidence of leak and no narrowing. Temporary pacer was removed. The left femoral sheath was removed and the artery sealed with a 8 Angio-Seal. Femoral venous line was removed and controlled with direct pressure. Patient was awakened and transferred to recovery in stable condition.
--- NOTE | 2024-06-21 08:46 | PTCA ---
PERCUTANEOUSTRANS CORORONARY ANGIOGRAPHY PROCEDURES PERFORMED: 1. Successful transcatheter aortic valve replacement using 26 mm Justin Hancock valve with an excellent result. 2. Ultrasound-guided access of the right and left common femoral arteries and left common femoral vein. 3. Adjunctive use of transesophageal echocardiogram. PERFORMING PHYSICIANS: 1. Romero Luna MD, section plotter operator. 2. Anthony Son DO, section plotter operator. 3. Dr. Gael Gooden, cardiothoracic surgeon. INDICATION: Symptomatic 83-year-old female patient who was diagnosed recently with aortic stenosis. The symptoms, she was experiencing shortness of breath consistent with NYHA class II. APPROACH: Bilateral common femoral arteries and left common femoral vein. COMPLICATIONS: None. LEVEL OF SEDATION: The procedure was performed under general anesthesia. PROCEDURE DESCRIPTION: After obtaining an informed consent, the patient was brought to the cardiac laboratory sampler. The left common femoral artery was cannulated using micropuncture technique under ultrasound guidance. The micropuncture wire passed easily. Then, we placed a 6-Welsh 23 cm sheath at the left common femoral artery. Subsequently, the left common femoral vein was cannulated using micropuncture technique under ultrasound guidance and the micropuncture wire passed easily. Then, we placed a 6-Welsh 23 cm sheath in the left common femoral vein. Subsequently, under fluoroscopic guidance, a balloon-tipped pacer wire was advanced to the right ventricle apex. The pacer wire was set up to be used during the procedure. Subsequently, a pigtail catheter was advanced through the left femoral artery sheath all the way to the aortic root for injection. Subsequently, the right common femoral artery was cannulated using micropuncture technique under ultrasound guidance. The micropuncture wire passed easily. Subsequently, we deployed 2 Perclose at the 11 o'clock and 2 o'clock, and then we did upgrade the sheath into an 8-Welsh 11 cm sheath and subsequently exchanged this sheath into a 14-Welsh sheath, which was Hancock sheath, under fluoroscopic guidance and over a stiff wire. That was a Safari wire. At that point, anticoagulation was initiated using heparin with continuous ACT monitoring. Subsequently, we did an aortic root angiogram, and then we did cross the aortic valve using 0.035 straight wire with the backup support of AL1 catheter. Subsequently, the AL1 catheter was exchanged into a pigtail catheter for simultaneous gradient, and the gradient in term of mean was significant, almost 40 mmHg. Subsequently, we did prep the valve, and then the valve was advanced through the 14- Welsh sheath under fluoroscopic guidance. The valve was deployed with adjunctive use of pacing and under fluoroscopic guidance. Transesophageal echocardiogram subsequently showed no evidence of any perivalvular leak, and the procedure was completed with no complication. The right common femoral artery hemostasis was achieved using 2 Perclose with a good hemostasis documented by angiogram, and the left common femoral artery hemostasis was performed using Angio-Seal. The procedure was completed with no complication. POSTPROCEDURE MANAGEMENT: Monitor the patient for the next 24 hours. Possible discharge home in the next 24 hours if the echo shows no significant abnormalities. Follow up with the patient. MMODL / IJN: [id number] /
== END 2024-05-13 13:43 | disposition home or self-care (01) | DRG 267 ==
LOC: 3SCARD 05:47
PROVIDERS: ADMIT Thoracic Surgery (Cardiothoracic Vascular Surgery); ATTEND Thoracic Surgery (Cardiothoracic Vascular Surgery)
PROC: B246ZZ4 Ultrasonography of Right and Left Heart, Transesophageal (ICD-10-PCS; 2024-05-08)
PROC: B3101ZZ Fluoroscopy of Thoracic Aorta using Low Osmolar Contrast (ICD-10-PCS; 2024-05-08)
PROC: 5A1223Z Performance of Cardiac Pacing, Continuous (ICD-10-PCS; 2024-05-08)
PROC: 02RF38Z Replacement of Aortic Valve with Zooplastic Tissue, Percutaneous Approach (ICD-10-PCS; principal; 2024-05-08 08:24)
DX: I35.0 Nonrheumatic aortic (valve) stenosis (principal); Z00.6 Encounter for examination for normal comparison and control in clinical research program; F05 Delirium due to known physiological condition; I50.32 Chronic diastolic (congestive) heart failure; Z88.1 Allergy status to other antibiotic agents; Z88.8 Allergy status to other drugs, medicaments and biological substances; J44.9 Chronic obstructive pulmonary disease, unspecified; E11.9 Type 2 diabetes mellitus without complications; Z86.73 Personal history of transient ischemic attack (TIA), and cerebral infarction without residual deficits; R01.1 Cardiac murmur, unspecified; I11.0 Hypertensive heart disease with heart failure; E78.5 Hyperlipidemia, unspecified; Z87.891 Personal history of nicotine dependence; Z85.3 Personal history of malignant neoplasm of breast
CPT/HCPCS: 33208; 33210; 33361; 70450; 71045; 71046; 86850; 86900; 86901; 94640; 94760

== ENCOUNTER 2024-05-19 16:08 | Inpatient (IN) | payer MEDICARE ==
[2024-05-19 17:35] LABS: Anisocytosis Slight; Basophils % (A) 0 %; Eosinophils # (A) 0.3 k/uL (0-0.7); Eosinophils % (A) 5 %; HCT 26.7 % (34.0-46.0); Hypochromasia Marked; Lymphocytes # (A) 1.2 k/uL (1.0-4.8); Lymphocytes % (A) 19 %; MCHC 31.9 g/dL (31.0-37.0); Mean Platelet Volume 7.6; Monocytes # (A) 0.4 k/uL (0-1.0); Monocytes % (A) 7 %; Neutrophils % (A) 65 %; Poikilocytosis Moderate; RBC 3.14 m/uL (3.80-5.40); RDW 16.8 % (11.5-15.5); WBC 6.1 k/uL (3.8-10.6)
[2024-05-19] MEDS: SODIUM CHLORIDE 0.9% 1,000 ML IV STA (17:45)
[2024-05-19 17:48] LABS: Partial Thromboplastin Time 25.6 sec (22.0-30.0); Prothrombin Time 11.2 sec (10.0-12.5)
[2024-05-19 17:57] LABS: ALT 11 U/L (4-34); African American GFR (CKD) 75 (>60 ml/min/1.73 sqM); Anion Gap 7 mmol/L; Blood Urea Nitrogen 17 mg/dL (7-17); Calcium 9.3 mg/dL (8.4-10.2); Carbon Dioxide 26 mmol/L (22-30); Chloride 104 mmol/L (98-107); Glucose 102 mg/dL (74-99); Non-African American GFR(CKD) 65 (>60 ml/min/1.73 sqM); Sodium 137 mmol/L (137-145); Total Protein 6.6 g/dL (6.3-8.2)
[2024-05-19 18:05] LABS: NT-Pro-B-Type Natriuretic Pept 1960 pg/mL
[2024-05-19] MEDS: ACETAMINOPHEN TAB 500 MG TAB PO STA (18:07)
[2024-05-19] MEDS: LIDOCAINE 4% PATCH TOPICAL STA (18:10)
[2024-05-19 18:16] LABS: HGB 8.5 gm/dL (11.4-16.0); MCV 84.9 fL (80.0-100.0); Platelet Count 162 k/uL (150-450)
--- NOTE | 2024-05-19 18:16 | XR ---
EXAMINATION TYPE: XR chest 2V DATE OF EXAM: 05/19/2024 5:39 PM CLINICAL INDICATION: Female, 83 years old with history of difficulty breathing; [facility] COMPARISON: 03/21/2024 TECHNIQUE: XR chest 2V Frontal view of the chest. FINDINGS: Lungs/Pleura: Blunting of the posterior costophrenic angles suggestive of pleural effusion. There is no evidence of focal consolidation, or pneumothorax. Pulmonary vascularity: Pulmonary vascular congestion. Heart/mediastinum: Cardiomediastinal silhouette is enlarged. Post aortic valve repair changes. Two l ead cardiac conduction device overlying the left hemithorax with lead tips projecting over the right ventricle and right atrium. Musculoskeletal: No acute osseous pathology. IMPRESSION: Cardiomegaly, pulmonary vascular congestion and bilateral pleural effusions. Correlate with BNP for c ongestive heart failure.
--- NOTE | 2024-05-19 18:18 | ED ---
General Adult HPI - General Chief complaint: Recheck/Abnormal Lab/Rx Stated complaint: SOB Time Seen by Provider: 05/19/24 16:40 Source: patient, EMS, RN notes reviewed, old records reviewed Mode of arrival: EMS Limitations: no limitations - History of Present Illness Initial comments: Patient is a 83-year-old female presents emergency department complaining of shortness of breath. Has been present since she was discharged from the hospital within the last week. Was admitted for TAVR as well as pacemaker placement with cardiothoracic surgery Dr. Gooden as well as Dr. Jordan of cardiology. Patient was discharged home. Since discharge home, has been having worsening shortness of breath. Has followed up with cardiology since that time and they did reduce her Lasix dose. However presents today for worsening shortness of breath. Is also complaining of lower mid back pain. No trauma or falls. Back pain has been present for over a week. Endorses worsening orthopnea. No significant lower extremity edema. No PND. Exertional dyspnea is present. Nonproductive cough is also present. Denies chest pain, abdominal pain, nausea, vomiting, diaphoresis. Presents for further evaluation at this time. Denies fevers or chills or sick contacts. - Related Data Home Medications Medication Instructions Recorded Confirmed Clopidogrel [Plavix] 75 mg PO DAILY 03/18/24 05/19/24 Dapagliflozin Propanediol [Farxiga] 10 mg PO DAILY 03/18/24 05/19/24 Furosemide [Lasix] 20 mg PO DAILY PRN 03/18/24 05/19/24 Omeprazole 20 mg PO HS 03/18/24 05/19/24 Pravastatin Sodium [Pravachol] 40 mg PO HS 03/18/24 05/19/24 allopurinoL 50 mg PO DAILY 03/18/24 05/19/24 Aspirin EC [Ecotrin Low Dose] 81 mg PO HS 05/19/24 05/19/24 Calcium Carbonate [Calcium] 1,200 mg PO DAILY 05/19/24 05/19/24 Cholecalciferol [Vitamin D3 (125 125 mcg PO HS 05/19/24 05/19/24 Mcg = 5000 Iu)] Cinnamon Bark [Cinnamon] 1,000 - 2,000 mg PO DAILY 05/19/24 05/19/24 Multivitamins, Thera [Multivitamin 1 tab PO HS 05/19/24 05/19/24 (formulary)] Olmesartan Medoxomil 20 mg PO DAILY 05/19/24 05/19/24 Bayard-3/Dha/Epa/Fish Oil [Fish Oil 1 cap PO HS 05/19/24 05/19/24 1,000 mg Softgel] Vitamin K2 150 mcg PO DAILY 05/19/24 05/19/24 carvediloL [Coreg] 25 mg PO BID 05/19/24 05/19/24 Allergies Allergy/AdvReac Type Severity Reaction Status Date / Time amoxicillin [From Augmentin] Allergy Rash/Hives Verified 05/19/24 18:45 clavulanic acid Allergy Rash/Hives Verified 05/19/24 18:45 [From Augmentin] duloxetine [From Cymbalta] Allergy Unknown Verified 05/19/24 18:45 Review of Systems ROS Statement: Those systems with pertinent positive or pertinent negative responses have been documented in the HPI. Review of Systems: CONST: Denies fever EYES: Denies blurry vision ENT: Denies nasal congestion C/V: Denies Chest pain RESP: Endorses shortness of breath GI: Denies abdominal pain : Denies dysuria SKIN: Denies rash. MSK: Denies joint pain. NEURO: Denies headache ROS Other: All systems not noted in ROS Statement are negative. Past Medical History Past Medical History: Cancer, Heart Failure, CVA/TIA, GERD/Reflux, Hyperlipidemia, Hypertension, Renal Disease Additional Past Medical History / Comment(s): Shortness of breath, stage 3 kidney disease, breast cancer radiation tx, TIA x5 History of Any Multi-Drug Resistant Organisms: None Reported Past Surgical History: Appendectomy, Back Surgery, Breast Surgery, Cholecystectomy Additional Past Surgical History / Comment(s): Spinal fusion, lumpectomy, removal fallopian tube and ovary, sally cataract removal Past Anesthesia/Blood Transfusion Reactions: No Reported Reaction Past Psychological History: Anxiety Smoking Status: Former smoker Past Alcohol Use History: None Reported Past Drug Use History: None Reported - Past Family History Daughter(s) Family Medical History: Cancer Additional Family Medical History / Comment(s): Endocrine cancer Sister(s) Family Medical History: Cancer Additional Family Medical History / Comment(s): Colon CA Father Family Medical History: Cancer Additional Family Medical History / Comment(s): Leukemia General Exam - General Exam Comments Initial Comments: General: Appears in no acute distress. HEAD: Normal with no signs of head trauma. EYES: PERRLA, EOMI, conjunctiva normal, no discharge. ENT: Hearing grossly intact, normal oropharynx. RESPIRATORY: Clear breath sounds bilaterally. No wheezes, rales, or rhonchi. No significant hypoxia. Mild increased work of breathing when laying down flat. C/V: Regular rate and rhythm. S1 and S2 auscultated, mild lower extremity pitting edema, peripheral pulses 2+ and intact throughout ABD: Abd is soft, nontender, nondistended EXT: Normal range of motion, no obvious deformity. Lower thoracic spine tenderness to palpation. No step-offs or deformities appreciated. SKIN: No rashes or lesions observed on exposed skin. NEURO: Alert and orient x 4. Limitations: no limitations Course Vital Signs 05/19/24 05/19/24 05/19/24 16:12 18:52 19:25 Temperature 98.7 F 98.1 F Pulse Rate 72 67 70 Respiratory 20 18 Rate Blood Pressure 170/100 169/74 164/74 O2 Sat by Pulse 98 100 100 Oximetry 05/19/24 20:00 Temperature Pulse Rate 69 Respiratory 18 Rate Blood Pressure 153/68 O2 Sat by Pulse 99 Oximetry Medical Decision Making - Medical Decision Making Was pt. sent in by a medical professional or institution (CHRISTINE Carpenter, LABORATORY ANALYST, urgent care, hospital, or assisted...) When possible be specific @ -No Did you speak to anyone other than the patient for history (EMS, parent, family, police, friend...)? What history was obtained from this source @ -Patient's daughter is with the patient and assist with past medical history. Did you review nursing and triage notes (agree or disagree)? Why? @ -I reviewed and agree with nursing and triage notes Were old charts reviewed (outside hosp., previous admission, EMS record, old EKG, old radiological studies, urgent care reports/EKG's, assisted records)? Report findings @ -Recent charting from admission not available due to computer system being down during that admission. Differential Diagnosis (chest pain, altered mental status, abdominal pain women, abdominal pain men, vaginal bleeding, weakness, fever, dyspnea, syncope, headach e, dizziness, GI bleed, back pain, seizure, CVA, palpatations, mental health, musculoskeletal)? @ -Differential Dyspnea: Coronary syndrome, arrhythmia, tamponade, asthma, COPD, pulmonary embolism, p neumonia, pneumothorax, pulmonary effusion, anaphylaxis, diabetic ketoacidosis, flailed chest, pulmonary contusion, diaphragmatic rupture, anemia, neuromuscular, this is not meant to be an all-inclusive list. EKG interpreted by me (3pts min.). @ -As above X-rays interpreted by me (1pt min.). @ -Chest x-ray reveals pulmonary vascular congestion, very mild bilateral pleural effusions, cardiomegaly. No obvious acute infiltrate. CT interpreted by me (1pt min.). @ -CT angio of the chest abdomen pelvis negative for any aortic injury, PE. Patient does have a compression fracture at T10. U/S interpreted by me (1pt. min.). @ -None done What testing was considered but not performed or refused? (CT, X-rays, U/S, labs)? Why? @ -None What meds were considered but not given or refused? Why? @ -None Did you discuss the management of the patient with other professionals (professionals i.e. , PA, LABORATORY ANALYST, lab, RT, psych nurse, social secretary, supervisor pre wave, teacher, special officer, medical case worker)? Give summary @ -Spoke with Dr. Cervantes who accepted the admission. Was smoking cessation discussed for >3mins.? @ -No Was critical care preformed (if so, how long)? @ -Yes, 32 minutes. Frequent reevaluations. Were there social determinants of health that impacted care today? How? (Homelessness, low income, unemployed, alcoholism, drug addiction, transportation, low edu. Level, literacy, decrease access to med. care, retirement, rehab)? @ -No Was there de-escalation of care discussed even if they declined (Discuss DNR or withdrawal of care, Hospice)? DNR status @ -No What co-morbidities impacted this encounter? (DM, HTN, Smoking, COPD, CAD, Cancer, CVA, ARF, Chemo, Hep., AIDS, mental health diagnosis, sleep apnea, morbid obesity)? @ -CHF, TAVR, pacemaker. Was patient admitted / discharged? Hospital course, mention meds given and route, prescriptions, significant lab abnormalities, going to OR and other pertinent info. @ -Patient presents for worsening dyspnea since discharge following TAVR as well as pacemaker placement within the last 7 to 10 days. Vital signs are within acceptable limits. Does have clinical symptoms of CHF as well including worsening orthopnea, exertional dyspnea, nonproductive cough. Vital signs are within acceptable limits. Cardiopulmonary workup will be obtained. Patient was in agreement this plan. She will be symptomatically treated with a small fluid bolus as well as Tylenol and a lidocaine patch at this time. EKG shows no signs of acute ischemia. Laboratory studies remarkable for decreased hemoglobin to 8.5 with no obvious source of bleeding at this time. Likely related to the recent surgery she experienced. D-dimer is elevated at 3.42. Troponin minimally elevated 0.095 with recent cardiac instrumentation. BNP is slightly elevated as well to 1960. Remainder the labs unremarkable. Chest x-ray significant for CHF findings. CT PE negative for PE or aortic injury. No other obvious finding other than T-spine compression fracture. The source of the patient's back pain likely T-spine fracture. Also suspect CHF exacerbation for the patient. Troponin is minimally elevated but likely secondary to the recent instrumentation we will continue to monitor at this time. Patient was given 324 mg of aspirin and started on IV Lasix. Echo ordered. Patient will be admitted to the hospital. Cardiology and cardiothoracic surgery consulted. Orthopedics on-call was consulted for the compression fracture. Patient was in agreement this plan. I spoke with the admitting physician, Dr. Cervantes who accepted the admission. Undiagnosed new problem with uncertain prognosis? @ -No Drug Therapy requiring intensive monitoring for toxicity (Heparin, Nitro, Insulin, Cardizem)? @ -No Were any procedures done? @ -No Diagnosis/symptom? @ -CHF, elevated troponin Acute, or Chronic, or Acute on Chronic? @ -Acute Uncomplicated (without systemic symptoms) or Complicated (systemic symptoms)? @ -Complicated Side effects of treatment? @ -No Exacerbation, Progression, or Severe Exacerbation? @ -No Poses a threat to life or bodily function? How? (Chest pain, [place], MA, pneumonia, PE, COPD, DKA, ARF, appy, cholecystitis, CVA, Diverticulitis, Homicidal, Suicidal, threat to staff... and all critical care pts) @ -Possibly, yes - Lab Data Result diagrams: 05/19/24 16:47 05/19/24 16:47 Lab Results 05/19/24 05/19/2405/19/24 Range/Units 16:47 16:47 16:47 WBC 6.1 (3.8-10.6) k/uL RBC 3.14 L (3.80-5.40) m/uL Hgb 8.5 L D (11.4-16.0) gm/dL Hct 26.7 L (34.0-46.0) % MCV 84.9 D (80.0-100.0) fL MCH 27.0 (25.0-35.0) pg MCHC 31.9 (31.0-37.0) g/dL RDW 16.8 H (11.5-15.5) % Plt Count 162 D (150-450) k/uL MPV 7.6 Neutrophils % 65 % Lymphocytes % 19 % Monocytes % 7 % Eosinophils % 5 % Basophils % 0 % Neutrophils # 4.0 (1.3-7.7) k/uL Lymphocytes # 1.2 (1.0-4.8) k/uL Monocytes # 0.4 (0-1.0) k/uL Eosinophils # 0.3 (0-0.7) k/uL Basophils # 0.0 (0-0.2) k/uL Hypochromasia Marked Poikilocytosis Moderate Anisocytosis Slight PT 11.2 (10.0-12.5) sec INR 1.0 (<1.2) APTT 25.6 (22.0-30.0) sec D-Dimer 3.42 H (<0.60) mg/L FEU Sodium (137-145) mmol/L Potassium (3.5-5.1) mmol/L Chloride (98-107) mmol/L Carbon Dioxide (22-30) mmol/L Anion Gap mmol/L BUN (7-17) mg/dL Creatinine (0.52-1.04) mg/dL Est GFR (CKD-EPI)AfAm (>60 ml/min/1.73 sqM) Est GFR (CKD-EPI)NonAf (>60 ml/min/1.73 sqM) Glucose (74-99) mg/dL Plasma Lactic Acid Rich (0.7-2.0) mmol/L Calcium (8.4-10.2) mg/dL Magnesium (1.6-2.3) mg/dL Total Bilirubin (0.2-1.3) mg/dL AST (14-36) U/L ALT (4-34) U/L Alkaline Phosphatase (38-126) U/L Troponin I (0.000-0.034) ng/mL NT-Pro-B Natriuret Pep pg/mL Total Protein (6.3-8.2) g/dL Albumin (3.5-5.0) g/dL Urine Color Colorless Urine Appearance Clear (Clear) Urine pH 6.0 (5.0-8.0) Ur Specific [place] 1.005 (1.001-1.035) Urine Protein Negative (Negative) Urine Glucose (UA) 1+ H (Negative) Urine Ketones Negative (Negative) Urine Blood Negative (Negative) Urine Nitrite Negative (Negative) Urine Bilirubin Negative (Negative) Urine Urobilinogen <2.0 (<2.0) mg/dL Ur Leukocyte Esterase Small H (Negative) Urine RBC <1 (0-5) /hpf Urine WBC 1 (0-5) /hpf Ur Squamous Epith Cells 4 (0-4) /hpf Urine Bacteria Rare H (None) /hpf 05/19/24 05/19/24 05/19/24 Range/Units 16:47 16:47 16:47 WBC (3.8-10.6) k/uL RBC (3.80-5.40) m/uL Hgb (11.4-16.0) gm/dL Hct (34.0-46.0) % MCV (80.0-100.0) fL MCH (25.0-35.0) pg MCHC (31.0-37.0) g/dL RDW (11.5-15.5) % Plt Count (150-450) k/uL MPV Neutrophils % % Lymphocytes % % Monocytes % % Eosinophils % % Basophils % % Neutrophils # (1.3-7.7) k/uL Lymphocytes # (1.0-4.8) k/uL Monocytes # (0-1.0) k/uL Eosinophils # (0-0.7) k/uL Basophils # (0-0.2) k/uL Hypochromasia Poikilocytosis Anisocytosis PT (10.0-12.5) sec INR (<1.2) APTT (22.0-30.0) sec D-Dimer (<0.60) mg/L FEU Sodium 137 (137-145) mmol/L Potassium 3.9 (3.5-5.1) mmol/L Chloride 104 (98-107) mmol/L Carbon Dioxide 26 (22-30) mmol/L Anion Gap 7 mmol/L BUN 17 (7-17) mg/dL Creatinine 0.83 (0.52-1.04) mg/dL Est GFR (CKD-EPI)AfAm 75 (>60 ml/min/1.73 sqM) Est GFR (CKD-EPI)NonAf 65 (>60 ml/min/1.73 sqM) Glucose 102 H (74-99) mg/dL Plasma Lactic Acid Rich 0.8 (0.7-2.0) mmol/L Calcium 9.3 (8.4-10.2) mg/dL Magnesium 1.7 (1.6-2.3) mg/dL Total Bilirubin 1.0 (0.2-1.3) mg/dL AST 35 (14-36) U/L ALT 11 (4-34) U/L Alkaline Phosphatase 38 (38-126) U/L Troponin I 0.095 H* (0.000-0.034) ng/mL NT-Pro-B Natriuret Pep 1960 pg/mL Total Protein 6.6 (6.3-8.2) g/dL Albumin 4.0 (3.5-5.0) g/dL Urine Color Urine Appearance (Clear) Urine pH (5.0-8.0) Ur Specific [place] (1.001-1.035) Urine Protein (Negative) Urine Glucose (UA) (Negative) Urine Ketones (Negative) Urine Blood (Negative) Urine Nitrite (Negative) Urine Bilirubin (Negative) Urine Urobilinogen (<2.0) mg/dL Ur Leukocyte Esterase (Negative) Urine RBC (0-5) /hpf Urine WBC (0-5) /hpf Ur Squamous Epith Cells (0-4) /hpf Urine Bacteria (None) /hpf - EKG Data -: EKG Interpreted by Me EKG Comments: 12-lead Electrocardiogram Interpretation Note EKG was reviewed and interpreted by myself. 12-lead ECG performed at 1613 is interpreted by me as revealing paced rhythm at a rate of 72 beats per minute. [place] is normal. OR interval is 142 ms, QRS duration is 127 ms, QTc is 448 ms.. There were no ST or T wave abnormalities to suggest myocardial ischemia or injury. R wave progression across the precordium was satisfactory. By my interpretation this EKG is non-diagnostic for acute ischemia. Critical Care Time Critical Care Time: Yes Total Critical Care Time: 32 Disposition Clinical Impression: CHF (congestive heart failure), Compression fx, thoracic spine, Elevated troponin Disposition: ADMITTED IP TO THIS HOSP Condition: Stable Referrals: Bjorn Glass MD [Primary Care Provider] - 1-2 days Time of Disposition: 20:15
[2024-05-19 18:22] LABS: AST 35 U/L (14-36); Alkaline Phosphatase 38 U/L (38-126); Magnesium 1.7 mg/dL (1.6-2.3); Potassium 3.9 mmol/L (3.5-5.1)
[2024-05-19 18:30] LABS: Appearance,Urine Clear (Clear); Bacteria,Urine Rare /hpf; Bilirubin,Urine Negative (Negative); Blood,Urine Negative (Negative); Color,Urine Colorless; Glucose,Urine (UA) 1+ (Negative); Ketones,Urine Negative (Negative); Leukocyte Esterase,Urine Small (Negative); Nitrite,Urine Negative (Negative); Protein,Urine Negative (Negative); RBC,Urine <1 /hpf (0-5); Specific Gravity,Urine 1.005 (1.001-1.035); Squamous Epithelial Cell,Urine 4 /hpf (0-4); Urobilinogen,Urine <2.0 mg/dL (<2.0); WBC,Urine 1 /hpf (0-5)
--- NOTE | 2024-05-19 19:50 | CT ---
EXAMINATION TYPE: CT angio thor/abd pel aorta CT of the chest abdomen pelvis without contrast. CT DLP: 2147.8 mGycm, Automated exposure control for dose reduction was used. DATE OF EXAM: 05/19/2024 7:28 PM COMPARISON: 04/11/2024. CLINICAL INDICATION: Female, 83 years old with history of dyspnea. recent TAVR and pacemaker placemen t; PHH, recent TAV/back pain TECHNIQUE: Dissection protocol: Multiple axial CT images of the chest, abdomen, and pelvis were obtai yousuf prior and to the administration of IV contrast. 3-D reformats and maximum intensity projection fo rmat were performed on a separate workstation. Contrast used:100 ml mL of Isovue 370 with IV Contrast, Oral contrast used: None FINDINGS: ARTERIAL VASCULATURE: Ascending thoracic aorta and descending thoracic aorta are within normal limits for size. There is no evidence for intramural hematoma within the aorta on noncontrast imaging. Post contrast imaging demonstrates no evidence for dissection. The major vessels of the aortic arch are pa tent. The major vessels of the abdominal aorta are patent. PULMONARY ARTERIAL VASCULATURE: Normal caliber. No evidence of filling defect to suggest pulmonary em bolus. VENOUS SYSTEM: Unremarkable. LUNGS/ PLEURA: Small right pleural effusion with associated atelectasis. Azygous fissure in the right upper lung. AIRWAY: Patent and unremarkable. HEART: Size within normal limits. Post CABG changes the heart. Mitral valve annular calcifications. C oronary artery atherosclerosis. MEDIASTINUM: No gross evidence of adenopathy. MUSCULOSKELETAL: No acute osseous abnormalities moderate degeneration changes most proximal and lower spine. Hardware in place hardware appears in appropriate position. T11 vertebral body compression de formity with 25% height loss unchanged from 04/11/2024. T10 vertebral body subtle cortical buckling possible endplate deformity series 203 image 68 suggests of compression fracture. . SOFT TISSUES/LYMPH NODES: Unremarkable. LOWER NECK: No significant findings. Abdomen: LIVER: Nodular contour to liver. GALLBLADDER AND BILE DUCTS: The gallbladder surgically absent. PANCREAS: Unremarkable. SPLEEN: Unremarkable. ADRENAL GLANDS: Unremarkable. KIDNEYS AND URETERS: No evidence of hydronephrosis or renal calculus. The ureters are unremarkable. PELVIS BLADDER: Unremarkable REPRODUCTIVE: Complex right ovarian/adnexal lesion measuring up to 10.1 x 5.3 cm. ABDOMEN & PELVIS STOMACH AND BOWEL: No evidence of bowel obstruction. PERITONEUM/RETROPERITONEUM: No evidence of pneumoperitoneum or free fluid. MUSCULOSKELETAL: No acute osseous abnormalities, hardware appears in appropriate position. Moderate m ultilevel degeneration changes of the spine. LYMPH NODES: No gross evidence for lymphadenopathy. SOFT TISSUE/ABDOMINAL WALL: Unremarkable IMPRESSION: 1. T10 vertebral body subtle cortical buckling possible endplate deformity series 203 image [address]s of superior endplate compression fracture. Further evaluation MRI without contrast recommended. 2. Similar T11 vertebral body compression deformity with 25% height loss. 3. No evidence for aortic dissection, aneurysmal dilation or pulmonary embolus. 4. Complex cystic lesion within the right ovary. Further nonemergent evaluation with ultrasound is r ecommended 5. Trace right pleural effusion and cardiomegaly. 6. Colonic diverticulosis.
[2024-05-19] MEDS ORDERED: NALOXONE 0.4 MG/ML 1 ML VIAL IV PRN (20:13)
[2024-05-19] MEDS: ASPIRIN 81 MG PO STA (20:27)
[2024-05-19] MEDS: FUROSEMIDE 10 MG/ML 4 ML VIAL IV SCH (20:27)
[2024-05-19] MEDS: ASPIRIN 81 MG PO SCH (20:31)
[2024-05-19] MEDS: carvediloL 12.5 MG TAB PO SCH (21:29)
[2024-05-19] MEDS: HEPARIN SODIUM,PORCINE 5,000 UNIT/ML 1 ML VIAL SQ SCH (23:01)
--- NOTE | 2024-05-20 00:35 | P.HPIM ---
History of Present Illness H&P Date: 05/19/24 Patient is a 83-year-old female with a PMH of CAD status post stenting, CHF (unknown type), status post recent TAVR (05/08/24) and pacemaker placement(05/10/24) with Dr Gooden and Dr Luna , type II DM, hypertension, hyperlipidemia who presents to the emergency room for shortness of breath. Patient reports that her symptoms started roughly a week ago and have gradually worsened. 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 The patient also reports a newer mid back pain over the past several weeks. She denies experiencing chest discomfort, fever, chills, nausea, vomiting, abdominal pain, diarrhea. Does report a chronic nonproductive cough which is unchanged. Also denies experiencing lower extremity edema but does endorse orthopnea without PND. CT angiogram aorta in the emergency room was unremarkable aside from a T-spine compression fracture, suspected new (as reported by ED provider, unable to access report or images for CT angiogram). EKG revealed V paced rhythm at 72 bpm as reviewed by me. Chest x-ray did reveal some pulmonary congestion. Laboratory evaluation was remarkable for proBNP of 1960, troponin 0.095, hemoglobin 8.5 (down from baseline of 12 on 03/21), D-dimer 3.42. ED documentation reviewed and case discussed with ED provider. Review of systems: Pertinent positives and negatives as discussed in HPI, a complete review of systems was performed and all other systems are negative. Physical examination: Vital signs reviewed General: non toxic, no distress, appears at stated age, obese Derm: no unusual rashes/lesions, warm Head: atraumatic, normocephalic, symmetric Eyes: EOMI, no lid lag, anicteric sclera, pupils equal round reactive to light ENT: Nose and ears atraumatic Neck: No cervical lymphadenopathy, trachea midline, supple Mouth: no lip lesion, mucus membranes moist Cardiovascular: S1S2 reg, grade 2 systolic murmur appreciated, positive dorsalis pedis pulse bilateral, no edema Lungs: CTA bilateral, no rhonchi, no rales, no accessory muscle use Abdominal: soft, nontender to palpation, no guarding Ext: muscle strength 4 out of 5 in all 4 extremities grossly, no gross muscle atrophy, no contractures, Neuro: CN II-XI grossly intact, no gross focal neuro deficits Psych: Alert, oriented, appropriate affect Assessment: Acute CHF exacerbation, unknown type; unable to access prior echocardiogram Elevated troponin, suspect type II NM in setting of ongoing CHF exacerbation Thoracic spine fracture Normocytic anemia, suspect possibly due to recent surgical procedures Chronic conditions: Type II DM, hypertension, hyperlipidemia Imaging: CT angiogram aorta in the emergency room was unremarkable. EKG revealed V paced rhythm at 72 bpm as reviewed by me. Chest x-ray did reveal some pulmonary congestion. Data Review: Laboratory evaluation was remarkable for proBNP of 1961, troponin 0.095, hemoglobin 8.5 (down from baseline of 12 on 03/21), D-dimer 3.42. Plan: Continue Lasix 40 mg IV every 12 hourly Cardiology and cardiothoracic surgery consulted Cardiac monitoring Cardiology consulted Trend troponin Obtain echocardiogram Orthopedic surgery consulted for T-spine fracture Monitor CBC Insulin sliding scale and blood glucose monitoring Intake and output, daily weights Continue with aspirin, Plavix DVT prophylaxis: Heparin subcu The patient is admitted with an anticipated fewer than 2 midnight stay for evaluation of SOB CODE STATUS: Full Code Discussed with: Patient Anticipated discharge place: Home Past Medical History Past Medical History: Cancer, Heart Failure, CVA/TIA, GERD/Reflux, Hyperlipidemia, Hypertension, Renal Disease Additional Past Medical History / Comment(s): Shortness of breath, stage 3 kidney disease, breast cancer radiation tx, TIA x5 History of Any Multi-Drug Resistant Organisms: None Reported Past Surgical History: Appendectomy, Back Surgery, Breast Surgery, Cholecystectomy Additional Past Surgical History / Comment(s): Spinal fusion, lumpectomy, removal fallopian tube and ovary, sally cataract removal Past Anesthesia/Blood Transfusion Reactions: No Reported Reaction Past Psychological History: Anxiety Smoking Status: Former smoker Past Alcohol Use History: None Reported Additional Past Alcohol Use History / Comment(s): quit 49 yrs ago, Past Drug Use History: None Reported - Past Family History Daughter(s) Family Medical History: Cancer Additional Family Medical History / Comment(s): Endocrine cancer Sister(s) Family Medical History: Cancer Additional Family Medical History / Comment(s): Colon CA Father Family Medical History: Cancer Additional Family Medical History / Comment(s): Leukemia Medications and Allergies Home Medications Medication Instructions Recorded Confirmed Type Clopidogrel [Plavix] 75 mg PO DAILY 03/18/24 05/19/24 History Dapagliflozin Propanediol [Farxiga] 10 mg PO DAILY 03/18/24 05/19/24 History Furosemide [Lasix] 20 mg PO DAILY PRN 03/18/24 05/19/24 History Omeprazole 20 mg PO HS 03/18/24 05/19/24 History Pravastatin Sodium [Pravachol] 40 mg PO HS 03/18/24 05/19/24 History allopurinoL 50 mg PO DAILY 03/18/24 05/19/24 History Aspirin EC [Ecotrin Low Dose] 81 mg PO HS 05/19/24 05/19/24 History Calcium Carbonate [Calcium] 1,200 mg PO DAILY 05/19/24 05/19/24 History Cholecalciferol [Vitamin D3 (125 125 mcg PO HS 05/19/24 05/19/24 History Mcg = 5000 Iu)] Cinnamon Bark [Cinnamon] 1,000 - 2,000 mg PO DAILY 05/19/24 05/19/24 History Multivitamins, Thera [Multivitamin 1 tab PO HS 05/19/24 05/19/24 History (formulary)] Olmesartan Medoxomil 20 mg PO DAILY 05/19/24 05/19/24 History [place]-3/Dha/Epa/Fish Oil [Fish Oil 1 cap PO HS 05/19/24 05/19/24 History 1,000 mg Softgel] Vitamin K2 150 mcg PO DAILY 05/19/24 05/19/24 History carvediloL [Coreg] 25 mg PO BID 05/19/24 05/19/24 History Allergies Allergy/AdvReac Type Severity Reaction Status Date / Time amoxicillin [From Augmentin] Allergy Rash/Hives Verified 05/19/24 18:45 clavulanic acid Allergy Rash/Hives Verified 05/19/24 18:45 [From Augmentin] duloxetine [From Cymbalta] Allergy Unknown Verified 05/19/24 18:45 Physical Exam Vitals: Vital Signs Temp Pulse Pulse Resp BP BP Pulse Ox 05/20/24 00:22 63 18 116/65 100 05/19/24 23:01 64 16 95/55 99 05/19/24 20:57 97.5 F L 69 18 171/71 100 05/19/24 20:00 69 18 153/68 99 05/19/24 19:25 70 18 164/74 100 05/19/24 18:52 98.1 F 67 20 169/74 100 05/19/24 16:12 98.7 F 72 170/100 98 Intake and Output 05/19/24 05/19/24 05/20/24 14:59 22:59 06:59 Other: Weight 91.217 kg Results CBC & Chem 7: 05/19/24 16:47 05/19/24 16:47 Labs: Abnormal Lab Results - Last 24 Hours (Table) 05/19/24 05/19/24 05/19/24 Range/Units 16:47 16:47 16:47 RBC 3.14 L (3.80-5.40) m/uL Hgb 8.5 L D (11.4-16.0) gm/dL Hct 26.7 L (34.0-46.0) % RDW 16.8 H (11.5-15.5) % D-Dimer 3.42 H (<0.60) mg/L FEU Glucose (74-99) mg/dL Troponin I (0.000-0.034) ng/mL Urine Glucose (UA) 1+ H (Negative) Ur Leukocyte Esterase Small H (Negative) Urine Bacteria Rare H (None) /hpf 05/19/24 05/19/24 05/19/24 Range/Units 16:47 16:47 23:22 RBC (3.80-5.40) m/uL Hgb (11.4-16.0) gm/dL Hct (34.0-46.0) % RDW (11.5-15.5) % D-Dimer (<0.60) mg/L FEU Glucose 102 H (74-99) mg/dL Troponin I 0.095 H* 0.099 H* (0.000-0.034) ng/mL Urine Glucose (UA) (Negative) Ur Leukocyte Esterase (Negative) Urine Bacteria (None) /hpf Thrombosis Risk Factor Assmnt - Choose All That Apply Any of the Below Risk Factors Present?: Yes Each Factor Represents 1 point: Obesity (BMI >25) Each Risk Factor Represents 3 Points: Age 75 years or older Thrombosis Risk Factor Assessment Total Risk Factor Score: 4 Thrombosis Risk Factor Assessment Level: Moderate Risk
[2024-05-20 06:09] LABS: Glucose,Whole Blood 133 mg/dL (70-110)
[2024-05-20] MEDS: INSULIN ASPART (NovoLOG) 100 UNIT/ML VIAL SQ SCH (06:10)
[2024-05-20 07:54] LABS: Anisocytosis Slight; Basophils % (A) 1 %; Eosinophils # (A) 0.3 k/uL (0-0.7); Eosinophils % (A) 5 %; HCT 27.2 % (34.0-46.0); Hypochromasia Marked; Lymphocytes % (A) 17 %; MCH 28.6 pg (25.0-35.0); MCHC 33.1 g/dL (31.0-37.0); MCV 86.2 fL (80.0-100.0); Mean Platelet Volume 9.1; Monocytes # (A) 0.4 k/uL (0-1.0); Monocytes % (A) 7 %; Neutrophils # (A) 3.8 k/uL (1.3-7.7); Neutrophils % (A) 67 %; Platelet Count 138 k/uL (150-450); Poikilocytosis Moderate; RBC 3.15 m/uL (3.80-5.40); RDW 17.1 % (11.5-15.5); WBC 5.6 k/uL (3.8-10.6)
[2024-05-20 08:43] LABS: ALT 13 U/L (4-34); African American GFR (CKD) 67 (>60 ml/min/1.73 sqM); Anion Gap 8 mmol/L; Blood Urea Nitrogen 17 mg/dL (7-17); Calcium 9.1 mg/dL (8.4-10.2); Carbon Dioxide 23 mmol/L (22-30); Chloride 108 mmol/L (98-107); Glucose 118 mg/dL (74-99); Non-African American GFR(CKD) 58 (>60 ml/min/1.73 sqM); Sodium 139 mmol/L (137-145); Total Bilirubin 1.1 mg/dL (0.2-1.3)
[2024-05-20 08:51] LABS: AST 38 U/L (14-36); Alkaline Phosphatase 36 U/L (38-126); Potassium 4.2 mmol/L (3.5-5.1); Total Protein 6.8 g/dL (6.3-8.2)
[2024-05-20] MEDS: PANTOPRAZOLE 40 MG/10 ML VIAL IV SCH (09:25)
[2024-05-20] MEDS: CLOPIDOGREL 75 MG TAB PO SCH (09:26)
--- NOTE | 2024-05-20 10:55 | P.CRDCN ---
History of Present Illness Consult date: 05/20/24 Reason for Consult (text): CHF, recent TAVR and pacemaker, elevated troponins History of present illness: This is an 83-year-old female patient of Dr. Son with past medical history of COPD, breast cancer, chronic diastolic heart failure, diabetes mellitus type 2, chronic kidney disease stage III history of stroke on Plavix, severe aortic stenosis status post TAVR at [facility] in April as well as pacemaker implantation following TAVR. Patient states that she has not felt well since she was in the hospital. She states that her breathing got bad and felt like she could not take a deep breath. She was also having difficulty breathing. Patient was started on IV Lasix states she is feeling better last evening but this morning she states she has some anxiety. She denies any problems at the groin site. Patient has noted to have anemia which appears to be new since February. Blood pressure 112/63, heart rate 65, pulse ox 97% on room air. Patient has been started on IV Lasix 40 mg every 12 hours. EKG: Ventricularly paced rhythm. Chest x-ray: Cardiomegaly, pulmonary vascular congestion and bilateral pleural effusions. CT angio thoracic and abdominal aorta, CT of the chest abdomen pelvis: T4 vertebral body buckling endplate deformity suggest compression fracture, similar T11 compression deformity. No aortic dissection, aneurysm mL dilation or pulmonary embolism. Complex cyst on the right ovary. Trace right pleural effus ion cardiomegaly. Colonic diverticulosis. Laboratory studies: WBC 5.6, hemoglobin 9, platelet count 138. Sodium 139, potassium 4.2, BUN 17 and creatinine 0.91. Troponin 0.095, 0.099 and 0.094. proBNP 1960. Home cardiac medications: Aspirin 81 mg at bedtime, Coreg 25 mg twice daily, Plavix 75 mg daily, Farxiga 10 mg daily, Lasix 20 mg daily as needed, olmesartan 20 mg daily, pravastatin 40 mg at bedtime. JUANA performed on 03/20/2024 revealed aortic valve tricuspid with severe aortic stenosis with aortic valve area 0.6 cm, EF 55% Left heart catheterization 03/20/2024 revealed CAD with 90% left main stenosis with abnormal IFR left main and IVUS left main, status post PCI of the left main. TAVR 04/2024 at [facility] and ended up having pacemaker implantation post TAVR. Patient is ventricular paced 100%. Review Of Systems: At the time of my exam: CONSTITUTIONAL: Denies fever or chills. Reports fatigue. Reports anxiety. HEENT: Denies blurred vision, vision changes, or eye pain. Denies hemoptysis CARDIOVASCULAR: Denies chest pain. Denies orthopnea. Denies PND. Denies palpitations RESPIRATORY: Reports shortness of breath. GASTROINTESTINAL: Denies abdominal pain. Denies nausea or vomiting. HEMATOLOGIC: Denies bleeding disorders. GENITOURINARY: Denies any blood in urine. SKIN: Denies puritis. Denies rash. Physical examination: Gen: This is an 83-year-old female appears to be in no acute distress. VS: reviewed HEENT: Head is atraumatic, normocephalic. Pupils equal, round. Sclerae is anicteric. NECK: Supple. No JVD. LUNGS: Diminished breath sounds. No intercostal retractions. HEART: Regular rate and rhythm. No murmur. ABDOMEN: Soft No tenderness. EXTREMITIES: No pedal edema. Dorsalis pedis palpable bilaterally. No calf tenderness. NEUROLOGICAL: Patient is awake, alert and oriented x3. Assessment: Acute on chronic diastolic heart failure Elevated troponin most likely secondary to recent TAVR Severe aortic stenosis status post TAVR Status post pacemaker following TAVR Anemia Chronic kidney disease stage III History of stroke Chronic kidney disease stage III COPD History of breast cancer Plan: Resume patient's home cardiac medications Continue IV Lasix 40 mg every 12 hours Monitor BRYANT, daily weights, electrolytes and renal function Obtain 2-D echocardiogram and Doppler study to assess cardiac structure and function Further recommendations to follow based upon clinical course Thank you kindly for this consultation. Nurse practitioner note has been reviewed, I agree with documented findings and plan of care. Patient was seen and examined. Past Medical History Past Medical History: Cancer, Heart Failure, CVA/TIA, GERD/Reflux, Hyperlipidemia, Hypertension, Renal Disease Additional Past Medical History / Comment(s): Shortness of breath, stage 3 kidney disease, breast cancer radiation tx, TIA x5 History of Any Multi-Drug Resistant Organisms: None Reported Past Surgical History: Appendectomy, Back Surgery, Breast Surgery, Cholecystect cathy Additional Past Surgical History / Comment(s): Spinal fusion, lumpectomy, removal fallopian tube and ovary, sally cataract removal Past Anesthesia/Blood Transfusion Reactions: No Reported Reaction Past Psychological History: Anxiety Smoking Status: Former smoker Past Alcohol Use History: None Reported Additional Past Alcohol Use History / Comment(s): quit 49 yrs ago, Past Drug Use History: None Reported - Past Family History Daughter(s) Family Medical History: Cancer Additional Family Medical History / Comment(s): Endocrine cancer Sister(s) Family Medical History: Cancer Additional Family Medical History / Comment(s): Colon CA Father Family Medical History: Cancer Additional Family Medical History / Comment(s): Leukemia Medications and Allergies Home Medications Medication Instructions Recorded Confirmed Type Clopidogrel [Plavix] 75 mg PO DAILY 03/18/24 05/19/24 History Dapagliflozin Propanediol [Farxiga] 10 mg PO DAILY 03/18/24 05/19/24 History Furosemide [Lasix] 20 mg PO DAILY PRN 03/18/24 05/19/24 History Omeprazole 20 mg PO HS 03/18/24 05/19/24 History Pravastatin Sodium [Pravachol] 40 mg PO HS 03/18/24 05/19/24 History allopurinoL 50 mg PO DAILY 03/18/24 05/19/24 History Aspirin EC [Ecotrin Low Dose] 81 mg PO HS 05/19/24 05/19/24 History Calcium Carbonate [Calcium] 1,200 mg PO DAILY 05/19/24 05/19/24 History Cholecalciferol [Vitamin D3 (125 125 mcg PO HS 05/19/24 05/19/24 History Mcg = 5000 Iu)] Cinnamon Bark [Cinnamon] 1,000 - 2,000 mg PO DAILY 05/19/24 05/19/24 History Multivitamins, Thera [Multivitamin 1 tab PO HS 05/19/24 05/19/24 History (formulary)] Olmesartan Medoxomil 20 mg PO DAILY 05/19/24 05/19/24 History [place]-3/Dha/Epa/Fish Oil [Fish Oil 1 cap PO HS 05/19/24 05/19/24 History 1,000 mg Softgel] Vitamin K2 150 mcg PO DAILY 05/19/24 05/19/24 History carvediloL [Coreg] 25 mg PO BID 05/19/24 05/19/24 History Allergies Allergy/AdvReac Type Severity Reaction Status Date / Time amoxicillin [From Augmentin] Allergy Rash/Hives Verified 05/19/24 18:45 clavulanic acid Allergy Rash/Hives Verified 05/19/24 18:45 [From Augmentin] duloxetine [From Cymbalta] Allergy Unknown Verified 05/19/24 18:45 Physical Exam Vitals: Vital Signs Temp Pulse Pulse Resp BP BP Pulse Ox 05/20/24 03:22 68 18 148/77 100 05/20/24 00:22 63 18 116/65 100 05/19/24 23:01 64 16 95/55 99 05/19/24 20:57 97.5 F L 69 18 171/71 100 05/19/24 20:00 69 18 153/68 99 05/19/24 19:25 70 18 164/74 100 05/19/24 18:52 98.1 F 67 20 169/74 100 05/19/24 16:12 98.7 F 72 170/100 98 Intake and Output 05/19/24 05/20/24 05/20/24 22:59 06:59 14:59 Intake Total 540 0 Output Total 600 Balance -60 0 Intake: Oral 540 0 Output: Urine 600 Other: Voiding Method External Catheter Weight 91.217 kg 103 kg Results 05/20/24 06:42 05/20/24 06:42 Cardiac Enzymes 05/19/24 05/19/24 05/19/24 Range/Units 16:47 16:47 23:22 AST 35 (14-36) U/L Troponin I 0.095 H* 0.099 H* (0.000-0.034) ng/mL 05/20/24 Range/Units 01:33 AST (14-36) U/L Troponin I 0.094 H* (0.000-0.034) ng/mL Coagulation 05/19/24 Range/Units 16:47 PT 11.2 (10.0-12.5) sec APTT 25.6 (22.0-30.0) sec CBC 05/19/24 05/20/24 Range/Units 16:47 06:42 WBC 6.1 5.6 (3.8-10.6) k/uL RBC 3.14 L 3.15 L (3.80-5.40) m/uL Hgb 8.5 L D 9.0 L (11.4-16.0) gm/dL Hct 26.7 L 27.2 L (34.0-46.0) % Plt Count 162 D 138 L (150-450) k/uL Comprehensive Metabolic Panel 05/19/24 Range/Units 16:47 Sodium 137 (137-145) mmol/L Potassium 3.9 (3.5-5.1) mmol/L Chloride 104 (98-107) mmol/L Carbon Dioxide 26 (22-30) mmol/L BUN 17 (7-17) mg/dL Creatinine 0.83 (0.52-1.04) mg/dL Glucose 102 H (74-99) mg/dL Calcium 9.3 (8.4-10.2) mg/dL AST 35 (14-36) U/L ALT 11 (4-34) U/L Alkaline Phosphatase 38 (38-126) U/L Total Protein 6.6 (6.3-8.2) g/dL Albumin 4.0 (3.5-5.0) g/dL Current Medications Generic Name Dose Route Start Last Admin Trade Name Freq PRN Reason Stop Dose Admin Acetaminophen 650 mg 05/19/24 20:13 Acetaminophen Tab 325 Mg Tab PO Q6HR PRN Mild Pain or Fever > 100.5 Aspirin 81 mg 05/19/24 21:00 05/19/24 20:31 Aspirin 81 Mg PO Not Given HS MP Carvedilol 25 mg 05/19/24 21:00 05/20/24 06:22 Carvedilol 12.5 Mg Tab PO 25 mg AC-BID MP Administration Clopidogrel Bisulfate 75 mg 05/20/24 09:00 Clopidogrel 75 Mg Tab PO DAILY MP Furosemide 40 mg 05/19/24 21:00 05/19/24 20:27 Furosemide 10 Mg/Ml 4 Ml Vial IV 40 mg Q12HR MP Administration Heparin Sodium (Porcine) 5,000 unit 05/20/24 00:00 05/19/24 23:01 Heparin Sodium,Porcine 5,000 Unit/Ml 1 Ml Vial SQ 5,000 unit Q8HR MP Administration Insulin Aspart 0 unit 05/20/24 07:30 05/20/24 06:10 Insulin Aspart (Novolog) 100 Unit/Ml Vial SQ Not Given ACHS MP Protocol Naloxone HCl 0.2 mg 05/19/24 20:13 Naloxone 0.4 Mg/Ml 1 Ml Vial IV Q2M PRN Opioid Reversal Pantoprazole Sodium 40 mg 05/20/24 09:00 Pantoprazole 40 Mg/10 Ml Vial IV DAILY MP Intake and Output 05/19/24 05/20/24 05/20/24 22:59 06:59 14:59 Intake Total 540 0 Output Total 600 Balance -60 0 Intake: Oral 540 0 Output: Urine 600 Other: Voiding Method External Catheter Weight 91.217 kg 103 kg 05/20/24 06:42 05/19/24 16:47
[2024-05-20 11:23] LABS: Glucose,Whole Blood 152 mg/dL (70-110)
[2024-05-20] MEDS: ASPIRIN 325 MG TAB ONE (12:21)
[2024-05-20] MEDS: ATORVASTATIN 80 MG TAB ONE (12:21)
[2024-05-20] MEDS: FUROSEMIDE 10 MG/ML 4 ML VIAL ONE (12:22)
[2024-05-20] MEDS: CLOPIDOGREL 75 MG TAB ONE (12:22)
[2024-05-20] MEDS: METOPROLOL TARTRATE 12.5 MG TAB ONE (12:22)
[2024-05-20] MEDS: PANTOPRAZOLE 40 MG/10 ML VIAL ONE (12:22)
--- NOTE | 2024-05-20 12:55 | CA ---
Transthoracic Echo Report Name: Tami Mejia Age: 83 Gender: F : 1940 Exam Date: 05/20/2024 09:04 Exam Location: [facility] Ht (in): 64 Wt (lb): 201 Ordering Physician: Michael Borjas MD Attending/Referring Phys: Jalousie Installer Mickie Bran RDCS Procedure CPT: Indications: chf Cardiac Hx: Technical Quality: Fair Contrast 1: Total Dose (mL): Contrast 2: Total Dose (mL): MEASUREMENTS (Male / Female) Normal Values 2D ECHO LV Diastolic Diameter PLAX 4.5 cm 4.2 - 5.9 / 3.9 - 5.3 cm LV Systolic Diameter PLAX 2.2 cm IVS Diastolic Thickness 2.1 cm 0.6 - 1.0 / 0.6 - 0.9 cm LVPW Diastolic Thickness 1.7 cm 0.6 - 1.0 / 0.6 - 0.9 cm LV Relative Wall Thickness 0.9 DOPPLER AV Peak Velocity 218.7 cm/s AV Peak Gradient 19.1 mmHg AV Mean Velocity 126.6 cm/s AV Mean Gradient 7.7 mmHg AV Velocity Time Integral 39.5 cm FINDINGS Left Ventricle Severely increased left ventricular wall thickness. Normal left ventricular systolic function with no obvious regional wall motion abnormalities. Left ventricular ejection fraction is estimated at 55 %. Right Ventricle Right Atrium Left Atrium Mitral Valve Aortic Valve s/p TAVR. Normally functioning Justin bioprosthetic aortic valve without stenosis with a peak velocity of 2 m/s, peak gradient 19 mmHg, mean gradient 8 mmHg. No paravalvular aortic regurgitation. Tricuspid Valve Pulmonic Valve Pericardium No pericardial effusion. Aorta CONCLUSIONS Left ventricular ejection fraction 55% Severely increased left ventricle thickness Normally functioning bioprosthetic aortic valve with mean gradient 8 mmHg with no perivalvular aortic regurgitation, no aortic regurgitation. Possible echo density which is paravalvular of the bioprosthetic valve in the right coronary cusp position which may relate to artifact vs other. Consider JUANA if clinically indicated. Previewed by: Dr. Anthony Son DO (Electronically Signed) Final Date: 20 May 2024 12:54
--- NOTE | 2024-05-20 13:23 | P.CNOR ---
History of Present Illness - [facility] Consult date: 05/20/24 Consult reason: other (Thoracic vertebral body compression fractures) History of present illness: Patient is an 83-year-old female who is admitted to [facility] at this time with regards to cardiac issues, she has had multiple surgeries in the last 2 weeks. Since being in the hospital she has noted some right sided lower back pain. Patient had a CT scan done of the thoracic aorta which did not find cortical changes in the T11 and T12 vertebral bodies. Our orthopedic team was consulted. Patient was evaluated today at bedside, she is sitting up resting in her hospital chair. Patient notes most of the pain to the right SI joint region. Patient states the pain has been there for about 3 to 4 days. She does deal with a generalized low back pain which Tylenol does help with. She seems comf ortable on exam, she is not having any excruciating pain. She does normally utilize Tylenol for basic aches and pains. Patient has a history of a previous spinal fusion that was done in 2016 in [place], [place], CT scan demonstrates a likely fusion at L3-L4 and L4-L5. Patient did state that she had seen an orthopedic doctor at orthopedic [facility] a few weeks ago, she has a hard time remembering exactly what she saw them for, she states she thinks she states it was for a possible injection for her back. Patient normally utilizes a walker for ambulation. Patient denies any loss of bowel or bladder function at this time. She denies any numbness or tingling to the bilateral lower ex tremities. Patient denies any recent falls. She denies any headaches, lightheadedness, cervical or thoracic pain, upper extremity or bilateral lower extremity weakness, numbness or tingling, fever or chills. Review of Systems Constitutional: Reports as per HPI Past Medical History Past Medical History: Cancer, Heart Failure, CVA/TIA, GERD/Reflux, Hyperlipidemia, Hypertension, Renal Disease Additional Past Medical History / Comment(s): Shortness of breath, stage 3 kidney disease, breast cancer radiation tx, TIA x5 History of Any Multi-Drug Resistant Organisms: None Reported Past Surgical History: Appendectomy, Back Surgery, Breast Surgery, Cholecystectomy Additional Past Surgical History / Comment(s): Spinal fusion, lumpectomy, removal fallopian tube and ovary, sally cataract removal Past Anesthesia/Blood Transfusion Reactions: No Reported Reaction Past Psychological History: Anxiety Smoking Status: Former smoker Past Alcohol Use History: None Reported Additional Past Alcohol Use History / Comment(s): quit 49 yrs ago, Past Drug Use History: None Reported - Past Family History Daughter(s) Family Medical History: Cancer Additional Family Medical History / Comment(s): Endocrine cancer Sister(s) Family Medical History: Cancer Additional Family Medical History / Comment(s): Colon CA Father Family Medical History: Cancer Additional Family Medical History / Comment(s): Leukemia Medications and Allergies Home Medications Medication Instructions Recorded Confirmed Type Clopidogrel [Plavix] 75 mg PO DAILY 03/18/24 05/19/24 History Dapagliflozin Propanediol [Farxiga] 10 mg PO DAILY 03/18/24 05/19/24 History Furosemide [Lasix] 20 mg PO DAILY PRN 03/18/24 05/19/24 History Omeprazole 20 mg PO HS 03/18/24 05/19/24 History Pravastatin Sodium [Pravachol] 40 mg PO HS 03/18/24 05/19/24 History allopurinoL 50 mg PO DAILY 03/18/24 05/19/24 History Aspirin EC [Ecotrin Low Dose] 81 mg PO HS 05/19/24 05/19/24 History Calcium Carbonate [Calcium] 1,200 mg PO DAILY 05/19/24 05/19/24 History Cholecalciferol [Vitamin D3 (125 125 mcg PO HS 05/19/24 05/19/24 History Mcg = 5000 Iu)] Cinnamon Bark [Cinnamon] 1,000 - 2,000 mg PO DAILY 05/19/24 05/19/24 History Multivitamins, Thera [Multivitamin 1 tab PO HS 05/19/24 05/19/24 History (formulary)] Olmesartan Medoxomil 20 mg PO DAILY 05/19/24 05/19/24 History [place]-3/Dha/Epa/Fish Oil [Fish Oil 1 cap PO HS 05/19/24 05/19/24 History 1,000 mg Softgel] Vitamin K2 150 mcg PO DAILY 05/19/24 05/19/24 History carvediloL [Coreg] 25 mg PO BID 05/19/24 05/19/24 History Allergies Allergy/AdvReac Type Severity Reaction Status Date / Time amoxicillin [From Augmentin] Allergy Rash/Hives Verified 05/19/24 18:45 clavulanic acid Allergy Rash/Hives Verified 05/19/24 18:45 [From Augmentin] duloxetine [From Cymbalta] Allergy Unknown Verified 05/19/24 18:45 Physical Examination Gen: AOx3, NAD VSS stable at this time Integument: No open lesions or sores are visualized throughout the cervical, thoracic or lumbar spine. Well-healed incision noted in the lower lumbar region. Palpation: There is no pain midline with palpation throughout the thoracic and lumbar spine, there is no paraspinal tenderness appreciated in the thoracic or lumbar area. She does demonstrate tenderness along the SI joint on the right-hand side, she is nontender on the left side ROM: Full range of motion in all major muscle groups of the bilateral upper extremities, no focal deficits appreciated Full range of motion in all major muscle groups of the bilateral lower extremities, no focal deficits appreciated Sensory Exam: Senory exam to light touch is intact C5-T1 Senosry exam to light touch is intact L2-S1 Motor: 4/5 strength appreciate the bilateral upper extremities with shoulder elevation, shoulder abduction, elbow extension, elbow flexion, wrist extension, wrist flexion, geography department chair 4/5 strength appreciated the bilateral lower extremities with hip flexion, knee extension, knee flexion, plantarflexion, dorsiflexion, EHL, FHL Reflexes: 2/4 in all UE and LE Negative clonus bilaterally Special Test: Logroll maneuver reproduces no groin pain bilaterally Negative straight leg raise bilaterally Results - Labs Labs: Abnormal Lab Results - Last 24 Hours (Table) 05/19/24 05/19/24 05/19/24 Range/Units 16:47 16:47 16:47 RBC 3.14 L (3.80-5.40) m/uL Hgb 8.5 L D (11.4-16.0) gm/dL Hct 26.7 L (34.0-46.0) % RDW 16.8 H (11.5-15.5) % Plt Count (150-450) k/uL D-Dimer 3.42 H (<0.60) mg/L FEU Chloride (98-107) mmol/L Glucose (74-99) mg/dL POC Glucose (mg/dL) (70-110) mg/dL AST (14-36) U/L Alkaline Phosphatase (38-126) U/L Troponin I (0.000-0.034) ng/mL Urine Glucose (UA) 1+ H (Negative) Ur Leukocyte Esterase Small H (Negative) Urine Bacteria Rare H (None) /hpf 05/19/24 05/19/24 05/19/24 Range/Units 16:47 16:47 23:22 RBC (3.80-5.40) m/uL Hgb (11.4-16.0) gm/dL Hct (34.0-46.0) % RDW (11.5-15.5) % Plt Count (150-450) k/uL D-Dimer (<0.60) mg/L FEU Chloride (98-107) mmol/L Glucose 102 H (74-99) mg/dL POC Glucose (mg/dL) (70-110) mg/dL AST (14-36) U/L Alkaline Phosphatase (38-126) U/L Troponin I 0.095 H* 0.099 H* (0.000-0.034) ng/mL Urine Glucose (UA) (Negative) Ur Leukocyte Esterase (Negative) Urine Bacteria (None) /hpf 05/20/24 05/20/24 05/20/24 Range/Units 01:33 06:07 06:42 RBC 3.15 L (3.80-5.40) m/uL Hgb 9.0 L (11.4-16.0) gm/dL Hct 27.2 L (34.0-46.0) % RDW 17.1 H (11.5-15.5) % Plt Count 138 L (150-450) k/uL D-Dimer (<0.60) mg/L FEU Chloride (98-107) mmol/L Glucose (74-99) mg/dL POC Glucose (mg/dL) 133 H (70-110) mg/dL AST (14-36) U/L Alkaline Phosphatase (38-126) U/L Troponin I 0.094 H* (0.000-0.034) ng/mL Urine Glucose (UA) (Negative) Ur Leukocyte Esterase (Negative) Urine Bacteria (None) /hpf 05/20/24 05/20/24 Range/Units 06:42 11:21 RBC (3.80-5.40) m/uL Hgb (11.4-16.0) gm/dL Hct (34.0-46.0) % RDW (11.5-15.5) % Plt Count (150-450) k/uL D-Dimer (<0.60) mg/L FEU Chloride 108 H (98-107) mmol/L Glucose 118 H (74-99) mg/dL POC Glucose (mg/dL) 152 H (70-110) mg/dL AST 38 H (14-36) U/L Alkaline Phosphatase 36 L (38-126) U/L Troponin I (0.000-0.034) ng/mL Urine Glucose (UA) (Negative) Ur Leukocyte Esterase (Negative) Urine Bacteria (None) /hpf H & H 05/19/24 05/20/24 Range/Units 16:47 06:42 Hgb 8.5 L D 9.0 L (11.4-16.0) gm/dL Hct 26.7 L 27.2 L (34.0-46.0) % Coagulation 05/19/24 Range/Units 16:47 INR 1.0 (<1.2) Result Diagrams: 05/20/24 06:42 05/20/24 06:42 Assessment and Plan Assessment: Right sided SI joint pain Superior endplate deformity T11 and T12 vertebral bodies Previous L3-L4, L4-L5 spinal fusion Chronic low back pain Multiple medical comorbidities Plan: Imaging: Reports and images were reviewed of the thoracic aorta CT. Images do demonstrate the hardware at L3-L4 and L4-L5. There are adjacent segment disease as noted above and below the fusion site. Multilevel vacuum disc phenomenon noted throughout the lower thoracic and lumbar spine. Superior endplate changes were noted at both T11 and T12 Plan: I was able to discuss the case with my attending Dr. Earl, this included physical exam findings and and imaging studies. No emergent orthopedic surgical intervention is recommended at this time Recommend conservative measures at this time, this to include use of Tylenol. Patient is on many cardiac drugs so anti-inflammatories are not be able to be utilized. Patient would like to avoid narcotics at this time. Could consider low-dose muscle relaxer if symptoms persist. Recommend PT/OT evaluation, this to include gait training with walker Will hold off on bracing at this time Could consider pain management consult for SI joint injection if symptoms worsen Other medical specialty recommendations appreciated GI DVT prophylaxis per primary medical service Discharge planning: Will follow patient during hospital stay, will place follow- up information in chart. Time with Patient: Less than 30
[2024-05-20] MEDS: ACETAMINOPHEN TAB 325 MG TAB PO PRN (13:44)
[2024-05-20] MEDS: LIDOCAINE 4% PATCH TOPICAL SCH (15:55)
[2024-05-20 16:06] LABS: Glucose,Whole Blood 196 mg/dL (70-110)
--- NOTE | 2024-05-20 16:32 | P.GSCN ---
History of Present Illness Consult date: 05/20/24 Reason for Consult: Status post TAVR, known to service Requesting physician: Michael Borjas History of present illness: This is an 83-year-old female patient who follows on an outpatient basis with Dr. Huerta for her primary care and with Dr. Son for her cardiology care. She has a past medical history significant for severe symptomatic aortic valve stenosis, symptoms of NYHA III, status post 26 mm STAR S3 TAVR placement on May 08, 2024, third-degree heart block post TAVR requiring permanent pacemake r placement, hypertension, hyperlipidemia, coronary artery disease status post PCI, TIA, chronic diastolic heart failure with an ejection fraction of 55%, history of breast CVA, status postlumpectomy, diabetes mellitus type 2, COPD and remote history of smoking. She presented to the emergency department yesterday 05/19/2024 with complaints of worsening shortness of breath, insomnia, urine retention and back pain which she reports is chronic in nature. She denies fever, chills, nausea, vomiting, recent falls, chest pain, abdominal pain, headache, presyncope or syncope. She does report some episodes of orthopnea which is contributing to her insomnia. She does report also that she is a worry wart and gets anxious. The patient followed up with Dr. Son last week and according to the patient was doing well except was having episodes of shortness of breath. A chest x-ray was completed which showed cardiomegaly, pulmonary vascular congestion and bilateral pleural effusions. A twelve-lead EKG was completed which showed a ventricular paced rhythm with a heart rate of 72. Due to the patient's complaint of back pain a CT scan of the abdomen, pelvis, and CT angio of the thoracic, abdominal aorta were completed. The CT scan revealed a thoracic spine compression fracture, trace right pleural effusion, cardiomegaly and colonic diverticulosis. Due to the findings of a thoracic spine compression fracture a consult was placed to orthopedics for further evaluation and recommendations. A transthoracic 2D echocardiogram was completed today which showed a left ventricular ejection fraction of 55%, severely increased left ventricular thickness, a normally functioning bioprosthetic aortic valve with a mean gradient of 8 mmHg with no paravalvular aortic regurgitation, no aortic reg urgitation, a possible echodensity which is paravalvular of the bioprosthetic valve in the right coronary cusp position which may relate to artifact versus other. Laboratory results demonstrated a WBC count of 6.1, hemoglobin 8.5, hematocrit 26.7, platelets 162, D-dimer 3.42, BUN 17, creatinine 0.83, glucose 102, serial troponins as high as 0.099 and proBNP 1960. A consult was placed to Dr. Gael Gooden from cardiothoracic surgery due to the patient's recent TAVR and being known to the cardiothoracic surgery service. Review of Systems A review of systems was completed was negative except as mentioned in the HPI. Past Medical History Past Medical History: Coronary Artery Disease (CAD), Cancer, Heart Failure, COPD, CVA/TIA, Diabetes Mellitus, GERD/Reflux, Hyperlipidemia, Hypertension, Renal Disease Additional Past Medical History / Comment(s): Shortness of breath, stage 3 kidney disease, breast cancer radiation tx, TIA x5 History of Any Multi-Drug Resistant Organisms: None Reported Past Surgical History: Appendectomy, Back Surgery, Breast Surgery, Cardiac Valve Replacement (TAVR on May 08, 2024), Cholecystectomy, Pacemaker Additional Past Surgical History / Comment(s): Spinal fusion, lumpectomy, removal fallopian tube and ovary, sally cataract removal Past Anesthesia/Blood Transfusion Reactions: No Reported Reaction Type of Cardiac Device: Permanent Pacemaker Past Psychological History: Anxiety Smoking Status: Former smoker Past Alcohol Use History: None Reported Additional Past Alcohol Use History / Comment(s): quit 49 yrs ago, Past Drug Use History: None Reported - Past Family History Daughter(s) Family Medical History: Cancer Additional Family Medical History / Comment(s): Endocrine cancer Sister(s) Family Medical History: Cancer Additional Family Medical History / Comment(s): Colon CA Father Family Medical History: Cancer Additional Family Medical History / Comment(s): Leukemia Medications and Allergies Home Medications Medication Instructions Recorded Confirmed Type Clopidogrel [Plavix] 75 mg PO DAILY 03/18/24 05/19/24 History Dapagliflozin Propanediol [Farxiga] 10 mg PO DAILY 03/18/24 05/19/24 History Furosemide [Lasix] 20 mg PO DAILY PRN 03/18/24 05/19/24 History Omeprazole 20 mg PO HS 03/18/24 05/19/24 History Pravastatin Sodium [Pravachol] 40 mg PO HS 03/18/24 05/19/24 History allopurinoL 50 mg PO DAILY 03/18/24 05/19/24 History Aspirin EC [Ecotrin Low Dose] 81 mg PO HS 05/19/24 05/19/24 History Calcium Carbonate [Calcium] 1,200 mg PO DAILY 05/19/24 05/19/24 History Cholecalciferol [Vitamin D3 (125 125 mcg PO HS 05/19/24 05/19/24 History Mcg = 5000 Iu)] Cinnamon Bark [Cinnamon] 1,000 - 2,000 mg PO DAILY 05/19/24 05/19/24 History Multivitamins, Thera [Multivitamin 1 tab PO HS 05/19/24 05/19/24 History (formulary)] Olmesartan Medoxomil 20 mg PO DAILY 05/19/24 05/19/24 History [place]-3/Dha/Epa/Fish Oil [Fish Oil 1 cap PO HS 05/19/24 05/19/24 History 1,000 mg Softgel] Vitamin K2 150 mcg PO DAILY 05/19/24 05/19/24 History carvediloL [Coreg] 25 mg PO BID 05/19/24 05/19/24 History Allergies Allergy/AdvReac Type Severity Reaction Status Date / Time amoxicillin [From Augmentin] Allergy Rash/Hives Verified 05/19/24 18:45 clavulanic acid Allergy Rash/Hives Verified 05/19/24 18:45 [From Augmentin] duloxetine [From Cymbalta] Allergy Unknown Verified 05/19/24 18:45 Surgical - Exam Vital Signs Temp Pulse BP Pulse Ox 98.7 F 72 170/100 98 05/19/24 16:12 05/19/24 16:12 05/19/24 16:12 05/19/24 16:12 - General well developed, well nourished, no distress, moderate pain (Chronic back pain), chronically ill, obese - Eyes PERRL, normal ocular movement, no pale, no icteric - ENT normal pinna, normal nares, normal mucosa, no hearing loss, no congestion, poor long term - Neck Neck is supple, no lymphadenopathy. no masses, no bruits, trachea midline, no venous distension - Respiratory Respirations are symmetrical and nonlabored. Lung sounds essentially clear throughout, diminished bilateral bases with few fine crackles to her right lower lobe. No wheezes or rhonchi. Room air oxygen saturations 97%. - Cardiovascular Regular rhythm and rate. S1 and S2 present, negative for S3 or gallop. Positive systolic murmur heard best to her right sternal border. Abnormal Heart Sounds: systolic murmur - Abdomen Abdomen is soft, nontender and nondistended. Active bowel sounds present all 4 abdominal quadrants. No guarding rigidity. No organomegaly appreciated. - Genitourinary Continues to void. - Rectum Deferred - Integumentary Left upper chest pacemaker insertion site clean dry and approximated. Dressing is clean, dry and intact. no rash, no growths, no abnormal pigmentation - Neurologic No focal deficits. normal coordination, normal sensation - Musculoskeletal Generalized weakness. Moves all 4 extremities with equal strength bilateral. normal gait - Psychiatric oriented to time, oriented to person, oriented to place, speech is normal, memory intact Results - Labs 05/20/24 06:42 05/20/24 06:42 Abnormal Lab Results - Last 24 Hours (Table) 05/19/24 05/19/24 05/19/24 Range/Units 16:47 16:47 16:47 RBC 3.14 L (3.80-5.40) m/uL Hgb 8.5 L D (11.4-16.0) gm/dL Hct 26.7 L (34.0-46.0) % RDW 16.8 H (11.5-15.5) % Plt Count (150-450) k/uL D-Dimer 3.42 H (<0.60) mg/L FEU Chloride (98-107) mmol/L Glucose (74-99) mg/dL POC Glucose (mg/dL) (70-110) mg/dL AST (14-36) U/L Alkaline Phosphatase (38-126) U/L Troponin I (0.000-0.034) ng/mL Urine Glucose (UA) 1+ H (Negative) Ur Leukocyte Esterase Small H (Negative) Urine Bacteria Rare H (None) /hpf 05/19/24 05/19/24 05/19/24 Range/Units 16:47 16:47 23:22 RBC (3.80-5.40) m/uL Hgb (11.4-16.0) gm/dL Hct (34.0-46.0) % RDW (11.5-15.5) % Plt Count (150-450) k/uL D-Dimer (<0.60) mg/L FEU Chloride (98-107) mmol/L Glucose 102 H (74-99) mg/dL POC Glucose (mg/dL) (70-110) mg/dL AST (14-36) U/L Alkaline Phosphatase (38-126) U/L Troponin I 0.095 H* 0.099 H* (0.000-0.034) ng/mL Urine Glucose (UA) (Negative) Ur Leukocyte Esterase (Negative) Urine Bacteria (None) /hpf 05/20/24 05/20/24 05/20/24 Range/Units 01:33 06:07 06:42 RBC 3.15 L (3.80-5.40) m/uL Hgb 9.0 L (11.4-16.0) gm/dL Hct 27.2 L (34.0-46.0) % RDW 17.1 H (11.5-15.5) % Plt Count 138 L (150-450) k/uL D-Dimer (<0.60) mg/L FEU Chloride (98-107) mmol/L Glucose (74-99) mg/dL POC Glucose (mg/dL) 133 H (70-110) mg/dL AST (14-36) U/L Alkaline Phosphatase (38-126) U/L Troponin I 0.094 H* (0.000-0.034) ng/mL Urine Glucose (UA) (Negative) Ur Leukocyte Esterase (Negative) Urine Bacteria (None) /hpf 05/20/24 05/20/24 Range/Units 06:42 11:21 RBC (3.80-5.40) m/uL Hgb (11.4-16.0) gm/dL Hct (34.0-46.0) % RDW (11.5-15.5) % Plt Count (150-450) k/uL D-Dimer (<0.60) mg/L FEU Chloride 108 H (98-107) mmol/L Glucose 118 H (74-99) mg/dL POC Glucose (mg/dL) 152 H (70-110) mg/dL AST 38 H (14-36) U/L Alkaline Phosphatase 36 L (38-126) U/L Troponin I (0.000-0.034) ng/mL Urine Glucose (UA) (Negative) Ur Leukocyte Esterase (Negative) Urine Bacteria (None) /hpf Diabetes panel 05/19/24 05/20/24 Range/Units 16:47 06:42 Sodium 137 139 (137-145) mmol/L Potassium 3.9 4.2 (3.5-5.1) mmol/L Chloride 104 108 H (98-107) mmol/L Carbon Dioxide 26 23 (22-30) mmol/L BUN 17 17 (7-17) mg/dL Creatinine 0.83 0.91 (0.52-1.04) mg/dL Glucose 102 H 118 H (74-99) mg/dL Calcium 9.3 9.1 (8.4-10.2) mg/dL AST 35 38 H (14-36) U/L ALT 11 13 (4-34) U/L Alkaline Phosphatase 38 36 L (38-126) U/L Total Protein 6.6 6.8 (6.3-8.2) g/dL Albumin 4.0 4.0 (3.5-5.0) g/dL Calcium panel 05/19/24 05/20/24 Range/Units 16:47 06:42 Calcium 9.3 9.1 (8.4-10.2) mg/dL Albumin 4.0 4.0 (3.5-5.0) g/dL Pituitary panel 05/19/24 05/20/24 Range/Units 16:47 06:42 Sodium 137 139 (137-145) mmol/L Potassium 3.9 4.2 (3.5-5.1) mmol/L Chloride 104 108 H (98-107) mmol/L Carbon Dioxide 26 23 (22-30) mmol/L BUN 17 17 (7-17) mg/dL Creatinine 0.83 0.91 (0.52-1.04) mg/dL Glucose 102 H 118 H (74-99) mg/dL Calcium 9.3 9.1 (8.4-10.2) mg/dL Adrenal panel 05/19/24 05/20/24 Range/Units 16:47 06:42 Sodium 137 139 (137-145) mmol/L Potassium 3.9 4.2 (3.5-5.1) mmol/L Chloride 104 108 H (98-107) mmol/L Carbon Dioxide 26 23 (22-30) mmol/L BUN 17 17 (7-17) mg/dL Creatinine 0.83 0.91 (0.52-1.04) mg/dL Glucose 102 H 118 H (74-99) mg/dL Calcium 9.3 9.1 (8.4-10.2) mg/dL Total Bilirubin 1.0 1.1 (0.2-1.3) mg/dL AST 35 38 H (14-36) U/L ALT 11 13 (4-34) U/L Alkaline Phosphatase 38 36 L (38-126) U/L Total Protein 6.6 6.8 (6.3-8.2) g/dL Albumin 4.0 4.0 (3.5-5.0) g/dL - Imaging Chest x-ray: report reviewed, image reviewed Additional studies: Transthoracic 2D echocardiogram results reviewed. Assessment and Plan Assessment: Acute on chronic diastolic heart failure with an ejection fraction of 55% Elevated troponins most likely secondary to recent TAVR Severe aortic valve stenosis, status post TAVR placement on May 08, 2024 Third-degree heart block, status post permanent pacemaker placement, status post TAVR Anemia of chronic disease Chronic kidney disease stage III History of TIA COPD Hypertension Hyperlipidemia Diabetes mellitus type 2 History of breast cancer, status postlumpectomy Remote history of nicotine dependence Plan: Patient was seen and examined at her bedside on the third floor cardiac stepdown unit. Her chart and diagnostics were reviewed. Her case was discussed in detail with Dr. Gael Gooden from cardiothoracic surgery. Medical management other comorbidities per primary care service and cardiology service. We will order an incentive spirometry encourage use 10 times every hour while awake. Encourage ambulation, out of bed for all meals. Physical and Occupational Therapy have been consulted and are following. We will continue to follow the patient on an as-needed basis, please feel free to reconsult if needed. Thank you for this consult. I have personally seen and examined the patient, performed the documentation and the assessment and plan as written. Number of minutes spent on the visit: 30. RUFINO Samaniego
--- NOTE | 2024-05-20 17:32 | P.PN ---
Subjective Progress Note Date: 05/20/24 Subjective: Patient was seen bedside. Patient reports no acute events overnight. Co mplaining of some shortness of breath with exertion. All Systems reviewed and pertinent positives and negatives noted in HPI, all other symptoms are negative Objective: Vital signs reviewed. General: Not in acute distress, resting comfortably in bed Eyes: PERRL, no scleral injection or icterus HENT: normocephalic, atraumatic, good hearing acuity, moist mucous membranes Neck: full range of motion Resp: CTAB, no rales, rhonchi, or wheezes CVS: normal S1 and S2, no murmurs, rubs or gallops, no edema GI: soft, NTTP, ND, no hepatosplenomegaly : no suprapubic tenderness, no CVAT MSK: no clubbing, no cyanosis, no noted contractures of extremities Skin: no noted rashes, petechiae; temperature of skin is appropriate Neuro: moving all extremities without signs of weakness, CN II-XII intact Psych: cooperative, euthymic mood, insight and judgment intact, AAOx3 Data reviewed today: WBC 4.6, hemoglobin 9.0, MCV 86.2, platelet count 138, sodium 139, potassium 4.2, bicarb 23, BUN 17, creatinine 0.91, estimated GFR 58, glucose 118, AST 38, ALT 13, alkaline phosphatase 36. Limited echocardiogram done on 05/20/2024 shows LVEF 55%, normally functioning bioprosthetic aortic valve with mean gradient 8 mmHg with no perivalvular aortic regurgitation, no aortic regurgitation. Assessment and Plan: 83-year-old female with PMH of CAD status post stenting, congestive heart failure (unknown), status post recent TAVR (05/08/2024) and pacemaker placement (05/10/2024), type 2 diabetes mellitus, hypertension, hyperlipidemia was admitted to the hospital for progressively worsening shortness of breath since 1 week likely due to acute CHF exacerbation. Patient also reported new mid back pain over the past several weeks. 1. acute on chronic diastolic heart failure exacerbation NSTEMI, likely type II Limited echocardiogram done on 05/20/2024 shows LVEF 55% with normally functioning bioprosthetic aortic valve. Cardiology following Continue with IV Lasix 40 mg every 12 hours Strict I's and O's Daily weights Continue with pravastatin 40 mg p.o. at bedtime Continue with Plavix 75 mg p.o. daily Continue with aspirin 81 mg p.o. at bedtime -Consider switching to oral diuretics tomorrow 2. Thoracic spine compression fracture T10 vertebral body compression fracture on thoracic aorta CT on 05/19/2024 Orthopedic surgery following PT/OT Pain control with acetaminophen 650 mg p.o. every 6 hours as needed, lidocaine 4% 1 patch daily 3. Normocytic anemia, likely due to multiple recent surgical procedures Hemoglobin 9.0, MCV 86.2 No active bleeding Continue monitor CBC Consider transfusion if hemoglobin less than 7.0 Type 2 diabetes -Sliding scale insulin, monitor for hypoglycemia Chronic problems Hypertension GERD Dyslipidemia Gout F: No IV fluids E: Replete PRN N: Heart healthy A: As tolerated DVT ppx: Heparin subcu Code Status: Full code Anticipated discharge place: Pending clinical course Anticipated discharge date: Pending clinical course I have seen and evaluated the patient today. Discussed with the resident and agree with the residents finding and plan as documented in the resident's note. Changes highlighted in blue font. Objective - Vital Signs Vital signs: Vital Signs Temp 97.9 F 05/20/24 15:46 Pulse 68 05/20/24 15:46 Resp 20 05/20/24 15:46 BP 158/73 05/20/24 15:46 Pulse Ox 97 05/20/24 15:46 FiO2 Intake & Output 05/19/24 05/20/24 05/20/24 18:59 06:59 18:59 Intake Total 540 222 Output Total 600 660 Balance -60 -438 Weight 91.217 kg 103 kg Intake: Oral 540 222 Output: Urine 600 660 Other: Voiding Method External Catheter External Catheter # Voids 1 # Bowel Movements 1 - Labs CBC & Chem 7: 05/20/24 06:42 05/20/24 06:42 Labs: Abnormal Lab Results - Last 24 Hours (Table) 05/19/24 05/19/24 05/19/24 Range/Units 16:47 16:47 16:47 RBC 3.14 L (3.80-5.40) m/uL Hgb 8.5 L D (11.4-16.0) gm/dL Hct 26.7 L (34.0-46.0) % RDW 16.8 H (11.5-15.5) % Plt Count (150-450) k/uL D-Dimer 3.42 H (<0.60) mg/L FEU Chloride (98-107) mmol/L Glucose (74-99) mg/dL POC Glucose (mg/dL) (70-110) mg/dL AST (14-36) U/L Alkaline Phosphatase (38-126) U/L Troponin I (0.000-0.034) ng/mL Urine Glucose (UA) 1+ H (Negative) Ur Leukocyte Esterase Small H (Negative) Urine Bacteria Rare H (None) /hpf 05/19/24 05/19/24 05/19/24 Range/Units 16:47 16:47 23:22 RBC (3.80-5.40) m/uL Hgb (11.4-16.0) gm/dL Hct (34.0-46.0) % RDW (11.5-15.5) % Plt Count (150-450) k/uL D-Dimer (<0.60) mg/L FEU Chloride (98-107) mmol/L Glucose 102 H (74-99) mg/dL POC Glucose (mg/dL) (70-110) mg/dL AST (14-36) U/L Alkaline Phosphatase (38-126) U/L Troponin I 0.095 H* 0.099 H* (0.000-0.034) ng/mL Urine Glucose (UA) (Negative) Ur Leukocyte Esterase (Negative) Urine Bacteria (None) /hpf 05/20/24 05/20/24 05/20/24 Range/Units 01:33 06:07 06:42 RBC 3.15 L (3.80-5.40) m/uL Hgb 9.0 L (11.4-16.0) gm/dL Hct 27.2 L (34.0-46.0) % RDW 17.1 H (11.5-15.5) % Plt Count 138 L (150-450) k/uL D-Dimer (<0.60) mg/L FEU Chloride (98-107) mmol/L Glucose (74-99) mg/dL POC Glucose (mg/dL) 133 H (70-110) mg/dL AST (14-36) U/L Alkaline Phosphatase (38-126) U/L Troponin I 0.094 H* (0.000-0.034) ng/mL Urine Glucose (UA) (Negative) Ur Leukocyte Esterase (Negative) Urine Bacteria (None) /hpf 05/20/24 05/20/24 05/20/24 Range/Units 06:42 11:21 16:05 RBC (3.80-5.40) m/uL Hgb (11.4-16.0) gm/dL Hct (34.0-46.0) % RDW (11.5-15.5) % Plt Count (150-450) k/uL D-Dimer (<0.60) mg/L FEU Chloride 108 H (98-107) mmol/L Glucose 118 H (74-99) mg/dL POC Glucose (mg/dL) 152 H 196 H (70-110) mg/dL AST 38 H (14-36) U/L Alkaline Phosphatase 36 L (38-126) U/L Troponin I (0.000-0.034) ng/mL Urine Glucose (UA) (Negative) Ur Leukocyte Esterase (Negative) Urine Bacteria (None) /hpf
[2024-05-20 20:11] LABS: Glucose,Whole Blood 160 mg/dL (70-110)
[2024-05-20] MEDS: PRAVASTATIN SODIUM 40 MG TAB PO SCH (21:46)
[2024-05-20] MEDS: PANTOPRAZOLE 40 MG TABLET PO SCH (21:46)
[2024-05-21 06:15] LABS: Glucose,Whole Blood 127 mg/dL (70-110)
--- NOTE | 2024-05-21 08:16 | P.PN ---
Subjective Progress Note Date: 05/21/24 Principal diagnosis: Thoracic vertebral body compression fractures Patient seen and examined this morning. Patient has been sitting up in chair this morning, nursing home social worker is at bedside to assist patient back to bed. Patient does report that her back pain and right SI joint pain has improved since yesterday. She states that her pain is managed on current regimen. Patient does inform staff that she is not remembering things from yesterday and would like the nurse to come in today when her daughter arrives to discuss her situation and plans. Continue to encourage patient to work with physical therapy today. Encourage use of incentive spirometer 10x/hr every hour when awake. Objective - Vital Signs Vital signs: Vital Signs Temp 98 F 05/20/24 20:00 Pulse 72 05/21/24 04:00 Resp 18 05/21/24 04:00 BP 98/54 05/21/24 04:00 Pulse Ox 95 05/21/24 04:00 FiO2 Intake & Output 05/20/24 05/21/24 05/21/24 18:59 06:59 18:59 Intake Total 342 480 Output Total 860 450 Balance -518 30 Weight 89 kg Intake: Oral 342 480 Output: Urine 860 450 Other: Voiding Method External Catheter Toilet Bedside Commode External Catheter # Voids 1 1 # Bowel Movements 1 - Exam Physical Examination General: The patient is awake and alert, in no acute distress Skin: Skin is warm and dry with no obvious rashes or lesions. Eye: Pupils are equal, round and reactive to light, extra-ocular movements are intact; there is normal conjunctiva bilaterally. Neck: The neck is supple, there is no tenderness and ROM intact. Cardiovascular: There is a regular rate and rhythm. No murmur, rub or gallop is appreciated. Respiratory: Respirations are non-labored, breath sounds are equal. Gastrointestinal: Soft, non-distended, non-tender abdomen. Back: There is no tenderness to palpation in the midline, paralumbar, parathoracic region. Mild to moderate TTP over the right SI joint. There is no obvious deformity . Musculoskeletal: ROM limited secondary to pain and stiffness from surgical procedure. Right: Shoulder abduction 5/5, elbow flexors 5/5, wrist dorsiflexors 5/5. finger abductor 5/5, low voltage technician 5/5, hip flexor 4/5, knee flexor 4/5, ankle dorsiflexor 4/5, ankle plantarflexion 4/5 and extensor hallucis 4/5. Left: Shoulder abduction 5/5, elbow flexors 5/5, wrist dorsiflexors 5/5. finger abductor 5/5, low voltage technician 5/5, hip flexor 4/5, knee flexor 4/5, ankle dorsiflexor 4/5, ankle plantarflexion 4/5 and extensor hallucis 4/5. Neurological: CN 2-12 intact. There are no obvious motor or sensory deficits. Movement and coordination equal and intact. Sensory exam to light touch intact C5-T1 and intact from L2-S1. Reflexes 2/4 in bilateral upper and lower extremities. Negative Hoffmans, babinski, and clonus signs. Psychiatric: Cooperative, appropriate mood & affect, normal judgment. - Labs CBC & Chem 7: 05/20/24 06:42 05/20/24 06:42 Labs: Abnormal Lab Results - Last 24 Hours (Table) 05/20/24 05/20/24 05/20/24 Range/Units 06:42 06:42 11:21 RBC 3.15 L (3.80-5.40) m/uL Hgb 9.0 L (11.4-16.0) gm/dL Hct 27.2 L (34.0-46.0) % RDW 17.1 H (11.5-15.5) % Plt Count 138 L (150-450) k/uL Chloride 108 H (98-107) mmol/L Glucose 118 H (74-99) mg/dL POC Glucose (mg/dL) 152 H (70-110) mg/dL AST 38 H (14-36) U/L Alkaline Phosphatase 36 L (38-126) U/L 05/20/24 05/20/24 05/21/24 Range/Units 16:05 20:09 05:57 RBC (3.80-5.40) m/uL Hgb (11.4-16.0) gm/dL Hct (34.0-46.0) % RDW (11.5-15.5) % Plt Count (150-450) k/uL Chloride (98-107) mmol/L Glucose (74-99) mg/dL POC Glucose (mg/dL) 196 H 160 H 127 H (70-110) mg/dL AST (14-36) U/L Alkaline Phosphatase (38-126) U/L Assessment and Plan Assessment: Right sided SI joint pain Superior endplate deformity T11 and T12 vertebral bodies Previous L3-L4, L4-L5 spinal fusion Chronic low back pain Multiple medical comorbidities Plan: -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 -Activity: Ambulate QID, OOB all meals, up and about, limit lifting bending twisting to less than 5 lbs. Use walker or cane if needed for stability. -Daily PT/OT, increase ambulation strength and balance. -Pain control: Adequate at this time -Encourage IS 10x/hr -Dispo: Patient is cleared from an Orthopedic standpoint, no further recommendations. Patient may follow up outpatient as needed. If symptoms return, recommend consult to pain management. *I reviewed and discussed this case with my attending Dr. Earl, whom has reviewed this chart and films and is in agreement with assessment and plan of care as outlined above. I have personally seen and examined the patient, performed the documentation and the assessment and plan as written. Number of minutes spent on the visit: 20m.
[2024-05-21] MEDS: allopurinoL 100 MG TAB PO SCH (08:17)
[2024-05-21] MEDS: LOSARTAN 50 MG TAB PO SCH (08:17)
[2024-05-21 08:53] LABS: African American GFR (CKD) 62 (>60 ml/min/1.73 sqM); Anion Gap 6 mmol/L; Blood Urea Nitrogen 18 mg/dL (7-17); Calcium 8.7 mg/dL (8.4-10.2); Carbon Dioxide 28 mmol/L (22-30); Chloride 105 mmol/L (98-107); Glucose 133 mg/dL (74-99); Non-African American GFR(CKD) 54 (>60 ml/min/1.73 sqM); Potassium 3.1 mmol/L (3.5-5.1); Sodium 139 mmol/L (137-145)
[2024-05-21] MEDS: CALCIUM CARBONATE 500 MG CHEWABLE PO SCH (09:00)
[2024-05-21 09:15] LABS: Anisocytosis Slight; Basophils % (A) 0 %; Eosinophils # (A) 0.2 k/uL (0-0.7); Eosinophils % (A) 4 %; HCT 26.4 % (34.0-46.0); HGB 8.3 gm/dL (11.4-16.0); Hypochromasia Marked; Lymphocytes # (A) 0.9 k/uL (1.0-4.8); Lymphocytes % (A) 17 %; MCH 27.5 pg (25.0-35.0); MCHC 31.5 g/dL (31.0-37.0); MCV 87.3 fL (80.0-100.0); Mean Platelet Volume 8.9; Monocytes # (A) 0.3 k/uL (0-1.0); Monocytes % (A) 6 %; Neutrophils # (A) 3.6 k/uL (1.3-7.7); Neutrophils % (A) 69 %; Platelet Count 137 k/uL (150-450); Poikilocytosis Moderate; RBC 3.02 m/uL (3.80-5.40); RDW 16.9 % (11.5-15.5); WBC 5.2 k/uL (3.8-10.6)
--- NOTE | 2024-05-21 10:14 | CONS ---
JANY Garrett is an 83-year-old lady who is admitted to hospital with symptoms of fatigue, tiredness, shortness of breath, and not feeling well. She had TAVR for severe aortic stenosis and also had a permanent pacemaker implant. Our thinking on her initial presentation was that she was in acute on chronic diastolic heart failure and elevated troponins may be related to the recent TAVR. We have treated her with Lasix with some improvement in symptoms. She had an echocardiogram yesterday, which was reviewed by Dr. Son, who performed her TAVR. There is an echodense lesion in relationship to the right coronary cusp and Dr. Son felt that the positioning of the valve may be such that it is impinging on the origin of the coronaries and if the renal functions are stable, he wanted to perform a cardiac catheterization on her. I am waiting for the labs this morning, and I will schedule it later today. The other etiological possibilities for her symptomatology including the anemia are hemoglobin prior to the procedure was around 12 and 13 and when she came in yesterday her hemoglobin was 8.5. This morning, patient is comfortable at rest, afebrile and vital signs are stable. She still complains of some shortness of breath. Her O2 saturation is 96% on room air and rest of her exam is unchanged. MMODL / IJN: [id number] /
[2024-05-21] MEDS ORDERED: NITROGLYCERIN SL TABS 0.4 MG TAB SUBLINGUAL PRN (10:53)
[2024-05-21] MEDS ORDERED: ALPRAZolam 0.5 MG TAB PO PRN (10:53)
[2024-05-21] MEDS ORDERED: FUROSEMIDE 20 MG TAB PO PRN (10:54)
[2024-05-21 11:23] LABS: Glucose,Whole Blood 129 mg/dL (70-110)
[2024-05-21] MEDS: ASPIRIN 325 MG TAB PO STA (11:26)
[2024-05-21] MEDS: ATORVASTATIN 80 MG TAB PO STA (11:26)
--- NOTE | 2024-05-21 11:40 | P.PN ---
Subjective Progress Note Date: 05/21/24 Subjective: Patient was seen bedside. Patient reports no acute events overnight. Complaining of some shortness of breath with exertion. All Systems reviewed and pertinent positives and negatives noted in HPI, all other symptoms are negative Objective: Vital signs reviewed. General: Not in acute distress, resting comfortably in bed Eyes: PERRL, no scleral injection or icterus HENT: normocephalic, atraumatic, good hearing acuity, moist mucous membranes Neck: full range of motion Resp: CTAB, no rales, rhonchi, or wheezes CVS: normal S1 and S2, no murmurs, rubs or gallops, no edema GI: soft, NTTP, ND, no hepatosplenomegaly : no suprapubic tenderness, no CVAT MSK: no clubbing, no cyanosis, no noted contractures of extremities Skin: no noted rashes, petechiae; temperature of skin is appropriate Neuro: moving all extremities without signs of weakness, CN II-XII intact Psych: cooperative, euthymic mood, insight and judgment intact, AAOx3 Data reviewed today: WBC 5.2, hemoglobin 8.3, MCV 87.3, platelet count 137, sodium 139, potassium 3.1 , chloride 105, bicarb 28, BUN 18, creatinine 0.97, glucose 133, calcium 8.7. No new imaging Assessment and Plan: 83-year-old female with PMH of CAD status post stenting, congestive heart failure (unknown), status post recent TAVR (05/08/2024) and pacemaker placement (05/10/2024), type 2 diabetes mellitus, hypertension, hyperlipidemia was admitted to the hospital for progressively worsening shortness of breath since 1 week likely due to acute CHF exacerbation. Patient also reported new mid back pain over the past several weeks. 1. acute on chronic diastolic heart failure exacerbation NSTEMI, likely type II Limited echocardiogram done on 05/20/2024 shows LVEF 55% with normally functioning bioprosthetic aortic valve. Cardiology following Cardiac catheterization and JUANA for cardiac structural assessment Continue with IV Lasix 40 mg every 12 hours Strict I's and O's Daily weights Continue with pravastatin 40 mg p.o. at bedtime Continue with Plavix 75 mg p.o. daily Continue with aspirin 81 mg p.o. at bedtime Started on Lasix 40mg po od; IV lasix is discontinued 2. Thoracic spine compression fracture T10 vertebral body compression fracture on thoracic aorta CT on 05/19/2024 Orthopedic surgery following PT/OT - patient is ambulatory with assistance Pain control with acetaminophen 650 mg p.o. every 6 hours as needed, lidocaine 4% 1 patch daily 3. Hypokalemia Started on Potassium 40mg po bid Monitor Electrolytes 4. Normocytic anemia, likely due to multiple recent surgical procedures Hemoglobin 8.3 (trending down Hb 9.0 on 05/20/2024), MCV 87.3 No active bleeding Continue to monitor CBC Consider transfusion if hemoglobin less than 7.0 Type 2 diabetes -Sliding scale insulin, monitor for hypoglycemia Chronic problems Hypertension GERD Dyslipidemia Gout F: No IV fluids E: Replete PRN N: Heart healthy A: As tolerated DVT ppx: Heparin subcu Code Status: Full code Anticipated discharge place: Pending clinical course Anticipated discharge date: Pending clinical course I saw and evaluated the patient during the watson and critical portions of this encounter, and discussed the case in detail with the resident author of this note, I agree with the Assessment and Plan, and my changes, if any, are highlighted in blue. Objective - Vital Signs Vital signs: Vital Signs Temp 97.9 F 05/21/24 08:00 Pulse 67 05/21/24 08:00 Resp 22 05/21/24 08:00 BP 157/67 05/21/24 08:00 Pulse Ox 98 05/21/24 08:00 FiO2 Intake & Output 05/20/24 05/21/24 05/21/24 18:59 06:59 18:59 Intake Total 342 480 120 Output Total 860 450 Balance -518 30 120 Weight 89 kg Intake: Oral 342 480 120 Output: Urine 860 450 Other: Voiding Method External Catheter Toilet Toilet Bedside Commode Bedside Commode External Catheter External Catheter # Voids 1 1 # Bowel Movements 1 - Labs CBC & Chem 7: 05/21/24 07:52 05/21/24 07:52 Labs: Abnormal Lab Results - Last 24 Hours (Table) 05/20/24 05/20/24 05/20/24 Range/Units 11:21 16:05 20:09 RBC (3.80-5.40) m/uL Hgb (11.4-16.0) gm/dL Hct (34.0-46.0) % RDW (11.5-15.5) % Plt Count (150-450) k/uL Lymphocytes # (1.0-4.8) k/uL Potassium (3.5-5.1) mmol/L BUN (7-17) mg/dL Glucose (74-99) mg/dL POC Glucose (mg/dL) 152 H 196 H 160 H (70-110) mg/dL 05/21/24 05/21/24 05/21/24 Range/Units 05:57 07:52 07:52 RBC 3.02 L (3.80-5.40) m/uL Hgb 8.3 L (11.4-16.0) gm/dL Hct 26.4 L (34.0-46.0) % RDW 16.9 H (11.5-15.5) % Plt Count 137 L (150-450) k/uL Lymphocytes # 0.9 L (1.0-4.8) k/uL Potassium 3.1 L (3.5-5.1) mmol/L BUN 18 H (7-17) mg/dL Glucose 133 H (74-99) mg/dL POC Glucose (mg/dL) 127 H (70-110) mg/dL
[2024-05-21] MEDS: POTASSIUM CHLORIDE ER 20 MEQ TAB.ER PO SCH (12:40)
[2024-05-21] MEDS: POTASSIUM CHLORIDE ER 10 MEQ TAB.ER.PRT PO STA (14:43)
[2024-05-21] MEDS: POTASSIUM CHLORIDE ER 20 MEQ TAB.ER PO STA ×2 (14:43)
[2024-05-21 16:09] LABS: Glucose,Whole Blood 112 mg/dL (70-110)
[2024-05-21] MEDS ORDERED: fentaNYL (PF) 50 MCG/ML 2 ML AMP ONE (16:22)
[2024-05-21] MEDS ORDERED: LIDOCAINE 1% INJ 10MG/ML (20 ML MDV) ONE (16:22)
[2024-05-21] MEDS ORDERED: VERAPAMIL 2.5 MG/ML 2 ML AMP ONE (16:22)
[2024-05-21] MEDS ORDERED: HEPARIN SODIUM 1,000 UN/ML (10ML VL) ONE (16:22)
[2024-05-21] MEDS: MIDAZOLAM 2 MG/2 ML VIAL IVP ONE (16:27)
[2024-05-21] MEDS: fentaNYL (PF) 50 MCG/ML 2 ML AMP IVP ONE (16:27)
[2024-05-21] MEDS: SODIUM CHLORIDE 0.9% 500 ML 500 ML IV ONE (16:27)
[2024-05-21] MEDS: LIDOCAINE 1% INJ 10MG/ML (20 ML MDV) SQ ONE (16:50)
[2024-05-21] MEDS: VERAPAMIL SYRINGE (5 MG/10 ML) INTRAARTER ONE (16:52)
[2024-05-21] MEDS: HEPARIN SODIUM 1,000 UN/ML (10ML VL) IV ONE (16:56)
[2024-05-21] MEDS: IOPAMIDOL-370 200ML BTL INJ ONE (17:30)
[2024-05-21] MEDS: IV FLUID CONTINUATION 500 ML IV ONE (17:52)
[2024-05-21] MEDS ORDERED: RX INFO: IV CONTRAST WAS GIVEN 1 EACH MISC MISCELLANE PRN (17:53)
[2024-05-21] MEDS ORDERED: ATROPINE SULFATE 0.1 MG/ML 10ML SYRINGE IV PRN (17:53)
[2024-05-21] MEDS ORDERED: ZOLPIDEM 5 MG TAB PO PRN (17:53)
[2024-05-21] MEDS ORDERED: MAG HYDROX/AL HYDROX/SIMETH 30 ML CUP PO PRN (17:53)
--- NOTE | 2024-05-21 17:56 | P.TEE ---
Description of Procedure(s): Procedure performed: Transesophageal Echocardiogram with color flow doppler, pulsed wave doppler and continuous wave doppler, moderate conscious sedation Moderate conscious sedation: Moderate conscious sedation was supplied with direct supervision of myself using Versed and Fentanyl. Complications: none Indications: echo density noted on transthoracic echo PROCEDURE: After the risks, benefits and alternatives of the above mentioned procedure was explained in detail with the patient, informed consent was obtained. Patient was brought to the lab in a fasting state. Patient was given IV Versed and Fentanyl for sedation. The throat was sprayed with Hurricane to anesthetize the throat. A lubricated Omni probe was then introduced into the esophagus and stomach and multiple views were obtained. 2D echo with color flow doppler, pulsed wave doppler and continuous wave doppler was utilized. Agitated saline bubbles were injected to assess for any intra-atrial shunt. The probe was then removed. Patient tolerated the procedure well. Patient was transferred to the post procedure area in stable and satisfactory condition. FINDINGS: 1. There is a normally functioning bioprosthetic aortic valve without any aortic regurgitation, no paravalvular leak. There is no aortic dissection or echodensity on the aortic valve 2. The mitral valve appears be normal with mild regurgitation. 3. Tricuspid valve appears to be normal. 4. The interatrial septum is intact. 5. Left atrial appendage is free of clot however there is an echo density which appears to be artifact. 6. Left ventricular ejection fraction 55%
[2024-05-21] MEDS: SODIUM CHLORIDE 0.9% 1,000 ML in EMPTY BAG 1 BAG IV SCH ×2 (18:00→18:04)
--- NOTE | 2024-05-21 18:00 | P.PRCINT ---
Percutaneous Coronary Int. - Percutaneous Coronary Intervention Percutaneous Coronary Intervention: PROCEDURES PERFORMED: Left heart catheterization, bilateral coronary angiography, ultrasound guided arterial access, IVUS left main, balloon angioplasty left main stent with a 4.5mm NC balloon INDICATION: unstable angina-type symptoms, elevated troponin, non-STEMI CONSENT:I have discussed the risks, benefits and alternative therapies for the above-mentioned procedure and for both sedation/analgesia as well as necessary blood product administration, if indicated, as they pertain to this patient. The patient has indicated understanding and acceptance of the risks and procedures discussed. PROCEDURE: After the risks, benefits and alternatives of the above mentioned procedure explained in detail with the patient, informed consent was obtained. Patient was taken to the catheterization lab and prepped and draped in usual fashion. Ultrasound guidance was used to assess for arterial access. 1% lidocaine was used to anesthetize the right radial artery. A 6-Mongolian sheath was placed in the right radial artery using modified Seldinger technique and ultrasound guidance. Left coronary angiography was performed with a 6-Mongolian JL 3.0 guide catheter and right coronary angiography was performed with a 5-Mongolian FR5 catheter in various views. A 5-Mongolian FR5 catheter was inserted into the left ventricle and pressure measurements were obtained. The decision was made to perform intravascular ultrasound of the left main. Heparin was given. A 0.014 BMW wire was advanced into the circumflex however on intravascular ultrasound appear to be outside the stent struts approximately. Therefore an additional 0.014 BMW wire was advanced through the left main stent and intravascular ultrasound confirmed intraluminal positioning. There was some stent deformation, underexpansion more proximally and therefore the decision was made to perform an angioplasty with a minimal luminal area of 5.0 mm at one point. There was the possibility of some plaque shifting previously. Therefore balloon angioplasty was performed with a 4.5 mm noncompliant balloon. Final cholangiograms were performed. Per interventional was 40-50% stenosis with RADHA 3 flow and postintervention there was less than 10% stenosis with RADHA 3 flow. Repeat intravascular ultrasound showed well-expanded stent. The right radial sheath was removed and a TR band was placed with hemostasis achieved. The patient tolerated the procedure well. Patient was transported back to the post catheterization holding area in stable condition. Conscious Sedation: Patient was monitored under the direct supervision of myself for conscious sedation using Versed and fentanyl for a total duration of 57 minutes HEMODYNAMICS: aorta: 136/72 LV: 142/5, LVEDP 21, mean gradient 4mmHg SELECTIVE CORONARY ARTERIOGRAPHY: LEFT MAIN: The left main is a large caliber vessel which bifurcates into the LAD and circumflex. There is an ostial left main stent with 40-50% stenosis. LEFT ANTERIOR DESCENDING CORONARY ARTERY: LAD is a large caliber vessel which wraps around to the apex. There is a mid LAD 40-50% stenosis. LEFT CIRCUMFLEX CORONARY ARTERY: Left circumflex is a moderate caliber vessel with mild luminal irregularity. RIGHT CORONARY ARTERY: The right coronary artery is a large caliber vessel which gives off a PDA and PLV branch and is the dominant vessel. There is mild luminal irregularities FINAL IMPRESSION: 1. CAD as described above including 40-50% left main stent stenosis, oriented 50% mid LAD stenosis 2. elevated left sided filling pressures 3. status post balloon angioplasty left main stent with a 4.5mm NC balloon PLAN: 1. Aggressive risk factor modification per most recent ACC/AHA guidelines. 2. continue dual antiplatelets with aspirin and Plavix for 12 months.
[2024-05-21] MEDS: MULTIVITAMINS, THERA 1 EACH TAB PO SCH (19:56)
[2024-05-21] MEDS: CHOLECALCIFEROL 125 MCG (5000 IU) TABLET PO SCH (19:56)
[2024-05-21 20:23] LABS: Glucose,Whole Blood 187 mg/dL (70-110)
[2024-05-22 05:58] LABS: Glucose,Whole Blood 126 mg/dL (70-110)
[2024-05-22] MEDS: ALPRAZolam 0.25 MG TAB PO PRN (06:10)
[2024-05-22] MEDS: POTASSIUM CHLORIDE ER 20 MEQ TAB.ER PO SCH (08:57)
[2024-05-22] MEDS: POTASSIUM CHLORIDE ER 20 MEQ TAB.ER PO STA (09:22)
[2024-05-22] MEDS: FUROSEMIDE 10 MG/ML 4 ML VIAL IV STA (09:23)
[2024-05-22 10:17] LABS: African American GFR (CKD) 61 (>60 ml/min/1.73 sqM); Non-African American GFR(CKD) 53 (>60 ml/min/1.73 sqM)
--- NOTE | 2024-05-22 11:11 | P.PN ---
Subjective Progress Note Date: 05/22/24 Reason for Consult (text): CHF, recent TAVR and pacemaker, elevated troponins History of present illness: This is an 83-year-old female patient of Dr. Son with past medical history of COPD, breast cancer, chronic diastolic heart failure, diabetes mellitus type 2, chronic kidney disease stage III history of stroke on Plavix, severe aortic stenosis status post TAVR at [facility] in April as well as pacemaker implantation following TAVR. Patient states that she has not felt well since she was in the hospital. She states that her breathing got bad and felt like she could not take a deep breath. She was also having difficulty breathing. Patient was started on IV Lasix states she is feeling better last evening but this morning she states she has some anxiety. She denies any problems at the groin site. Patient has noted to have anemia which appears to be new since February. Blood pressure 112/63, heart rate 65, pulse ox 97% on room air. Patient has been started on IV Lasix 40 mg every 12 hours. EKG: Ventricularly paced rhythm. Chest x-ray: Cardiomegaly, pulmonary vascular congestion and bilateral pleural effusions. CT angio thoracic and abdominal aorta, CT of the chest abdomen pelvis: T4 vertebral body buckling endplate deformity suggest compression fracture, similar T11 compression deformity. No aortic dissection, aneurysm mL dilation or pulmonary embolism. Complex cyst on the right ovary. Trace right pleural effusion cardiomegaly. Colonic diverticulosis. Laboratory studies: WBC 5.6, hemoglobin 9, platelet count 138. Sodium 139, potassium 4.2, BUN 17 and creatinine 0.91. Troponin 0.095, 0.099 and 0.094. proBNP 1960. Home cardiac medications: Aspirin 81 mg at bedtime, Coreg 25 mg twice daily, Plavix 75 mg daily, Farxiga 10 mg daily, Lasix 20 mg daily as needed, olmesartan 20 mg daily, pravastatin 40 mg at bedtime. JUANA performed on 03/20/2024 revealed aortic valve tricuspid with severe aortic stenosis with aortic valve area 0.6 cm, EF 55% Left heart catheterization 03/20/2024 revealed CAD with 90% left main stenosis with abnormal IFR left main and IVUS left main, status post PCI of the left main. TAVR 04/2024 at [facility] and ended up having pacemaker implantation post TAVR. Patient is ventricular paced 100%. 8/28 Yesterday, patient underwent a left heart catheterization with Dr. Son that revealed CAD with 40 to 50% left main stent stenosis, 50% mid LAD stenosis, elevated left-sided filling pressures, status post balloon angioplasty left main stent. Patient also underwent JUANA which revealed normally functioning bioprosthetic aortic valve without any aortic regurgitation, no paravalvular leak. There is no aortic dissection or echodensity on the aortic valve. Mitral valve is normal with mild regurgitation. Tricuspid valve normal. The interatrial septum is intact. Left atrial appendage is free of clot however there is an echodensity which appears to be artifact. EF 55%. Patient states that she woke up this morning feeling well but then subsequently developed shortness of breath. Blood pressure 145/68, heart rate 67, pulse ox 100% on room air. Creatinine 0.98. Physical examination: Gen: This is an 83-year-old female appears to be in no acute distress. VS: reviewed HEENT: Head is atraumatic, normocephalic. Pupils equal, round. Sclerae is anicteric. NECK: Supple. No JVD. LUNGS: Diminished breath sounds. No intercostal retractions. HEART: Regular rate and rhythm. No murmur. ABDOMEN: Soft No tenderness. EXTREMITIES: No pedal edema. Dorsalis pedis palpable bilaterally. No calf tenderness. NEUROLOGICAL: Patient is awake, alert and oriented x3. Assessment: Acute on chronic diastolic heart failure Elevated troponin most likely secondary to recent TAVR Severe aortic stenosis status post TAVR Status post pacemaker following TAVR Anemia Chronic kidney disease stage III History of stroke Chronic kidney disease stage III COPD History of breast cancer Plan: Resume patient's home cardiac medications Give 1 dose of IV Lasix 40 mg and then oral 40 mg daily Start patient on potassium 20 mill equivalents daily Monitor BRYANT, daily weights, electrolytes and renal function Further recommendations to follow based upon clinical course Nurse practitioner note has been reviewed, I agree with documented findings and plan of care. Patient was seen and examined. Objective - Vital Signs Vital signs: Vital Signs Temp 97.6 F 05/22/24 08:00 Pulse 67 05/22/24 08:00 Resp 23 05/22/24 08:00 BP 145/68 05/22/24 08:00 Pulse Ox 100 05/22/24 08:00 FiO2 Intake & Output 05/21/24 05/22/24 05/22/24 18:59 06:59 18:59 Intake Total 538 0 Output Total 200 Balance 538 -200 0 Weight 89.6 kg Intake: IV 300 Oral 238 0 Output: Urine 200 Other: Voiding Method Toilet Toilet # Voids 1 - Labs CBC & Chem 7: 05/21/24 07:52 05/22/24 09:14 Labs: Abnormal Lab Results - Last 24 Hours (Table) 05/21/24 05/21/24 05/21/24 Range/Units 07:52 07:52 11:21 RBC 3.02 L (3.80-5.40) m/uL Hgb 8.3 L (11.4-16.0) gm/dL Hct 26.4 L (34.0-46.0) % RDW 16.9 H (11.5-15.5) % Plt Count 137 L (150-450) k/uL Lymphocytes # 0.9 L (1.0-4.8) k/uL Potassium 3.1 L (3.5-5.1) mmol/L BUN 18 H (7-17) mg/dL Glucose 133 H (74-99) mg/dL POC Glucose (mg/dL) 129 H (70-110) mg/dL 05/21/24 05/21/24 05/22/24 Range/Units 16:08 20:13 05:46 RBC (3.80-5.40) m/uL Hgb (11.4-16.0) gm/dL Hct (34.0-46.0) % RDW (11.5-15.5) % Plt Count (150-450) k/uL Lymphocytes # (1.0-4.8) k/uL Potassium (3.5-5.1) mmol/L BUN (7-17) mg/dL Glucose (74-99) mg/dL POC Glucose (mg/dL) 112 H 187 H 126 H (70-110) mg/dL
[2024-05-22 11:27] LABS: Glucose,Whole Blood 128 mg/dL (70-110)
--- NOTE | 2024-05-22 13:47 | P.PN ---
Subjective Progress Note Date: 05/22/24 Subjective: Patient was seen bedside. Patient underwent angioplasty to the left main stent yesterday. Today she reports ongoing dyspnea. All Systems reviewed and pertinent positives and negatives noted in HPI, all other symptoms are negative Objective: Vital signs reviewed. General: Not in acute distress, resting comfortably in bed Eyes: PERRL, no scleral injection or icterus HENT: normocephalic, atraumatic, good hearing acuity, moist mucous membranes Neck: full range of motion Resp: CTAB, no rales, rhonchi, or wheezes CVS: normal S1 and S2, no murmurs, rubs or gallops, no edema GI: soft, NTTP, ND, no hepatosplenomegaly : no suprapubic tenderness, no CVAT MSK: no clubbing, no cyanosis, no noted contractures of extremities Skin: no noted rashes, petechiae; temperature of skin is appropriate Neuro: moving all extremities without signs of weakness, CN II-XII intact Psych: cooperative, euthymic mood, insight and judgment intact, AAOx3 Data reviewed today: WBC 5.2, hemoglobin 8.3, MCV 87.3, platelet count 137, sodium 139, potassium 3.1 , chloride 105, bicarb 28, BUN 18, creatinine 0.97, glucose 133, calcium 8.7. No new imaging Assessment and Plan: 83-year-old female with PMH of CAD status post stenting, congestive heart failure (unknown), status post recent TAVR (05/08/2024) and pacemaker placement (05/10/2024), type 2 diabetes mellitus, hypertension, hyperlipidemia was admitted to the hospital for progressively worsening shortness of breath since 1 week likely due to acute CHF exacerbation. Patient also reported new mid back pain over the past several weeks. 1. acute on chronic diastolic heart failure exacerbation NSTEMI, likely type II Limited echocardiogram done on 05/20/2024 shows LVEF 55% with normally functioning bioprosthetic aortic valve. Cardiology following Strict I's and O's Daily weights Continue with pravastatin 40 mg p.o. at bedtime Continue with Plavix 75 mg p.o. daily Continue with aspirin 81 mg p.o. at bedtime Started on Lasix 40mg po od; IV lasix is discontinued 2. Thoracic spine compression fracture T10 vertebral body compression fracture on thoracic aorta CT on 05/19/2024 Orthopedic surgery following PT/OT - patient is ambulatory with assistance Pain control with acetaminophen 650 mg p.o. every 6 hours as needed, lidocaine 4% 1 patch daily 3. Hypokalemia Started on Potassium 40mg po bid Monitor Electrolytes 4. Normocytic anemia, likely due to multiple recent surgical procedures Hemoglobin 8.3 (trending down Hb 9.0 on 05/20/2024), MCV 87.3 No active bleeding Continue to monitor CBC Consider transfusion if hemoglobin less than 7.0 Type 2 diabetes -Sliding scale insulin, monitor for hypoglycemia Chronic problems Hypertension GERD Dyslipidemia Gout F: No IV fluids E: Replete PRN N: Heart healthy A: As tolerated DVT ppx: Heparin subcu Code Status: Full code Anticipated discharge place: Pending clinical course Anticipated discharge date: Pending clinical course Objective - Vital Signs Vital signs: Vital Signs Temp 97.9 F 05/22/24 11:24 Pulse 71 05/22/24 11:24 Resp 21 05/22/24 11:24 BP 147/67 05/22/24 11:24 Pulse Ox 99 05/22/24 11:24 FiO2 Intake & Output 05/21/24 05/22/24 05/22/24 18:59 06:59 18:59 Intake Total 538 0 Output Total 200 400 Balance 538 -200 -400 Weight 89.6 kg Intake: IV 300 Oral 238 0 Output: Urine 200 400 Other: Voiding Method Toilet Toilet Toilet # Voids 1 - Labs CBC & Chem 7: 05/21/24 07:52 05/22/24 09:14 Labs: Abnormal Lab Results - Last 24 Hours (Table) 05/21/24 05/21/24 05/22/24 Range/Units 16:08 20:13 05:46 POC Glucose (mg/dL) 112 H 187 H 126 H (70-110) mg/dL 05/22/24 Range/Units 11:26 POC Glucose (mg/dL) 128 H (70-110) mg/dL
[2024-05-22 14:54] VITALS: BMI 33.9
[2024-05-22 16:32] LABS: Glucose,Whole Blood 126 mg/dL (70-110)
[2024-05-22 20:20] LABS: Glucose,Whole Blood 162 mg/dL (70-110)
[2024-05-22] MEDS ORDERED: HEPARIN SODIUM,PORCINE 5,000 UNIT/ML 1 ML VIAL ONE (23:50)
[2024-05-23] MEDS ORDERED: ACETAMINOPHEN TAB 325 MG TAB ONE (04:00)
--- NOTE | 2024-05-23 08:31 | XR ---
EXAMINATION TYPE: XR chest 1V portable DATE OF EXAM: 05/23/2024 8:26 AM CLINICAL INDICATION: Female, 83 years old with history of orthopnea; COMPARISON: Chest radiographs from 05/19/2024 TECHNIQUE: XR chest 1V portable Frontal view of the chest. FINDINGS: Lungs/Pleura: Low lung volumes are present. There is no evidence of pleural effusion, focal consolida tion, or pneumothorax. Pulmonary vascularity: Unremarkable. Heart/mediastinum: Cardiomediastinal silhouette is unremarkable. Post aortic valve repair changes. T wo lead cardiac conduction device overlying the left hemithorax with lead tips projecting over the ri ght ventricle and right atrium. Musculoskeletal: No acute osseous pathology. IMPRESSION: Low lung volumes with a generalized hazy appearance which could represent atelectasis versus pulmonar y edema correlate with serum BNP.
[2024-05-23] MEDS: FUROSEMIDE 40 MG TAB PO SCH (08:34)
[2024-05-23] MEDS ORDERED: amLODIPine 5 MG TAB PO SCH (09:00)
[2024-05-23 09:20] VITALS: RESP 20
[2024-05-23 10:50] LABS: African American GFR (CKD) 66 (>60 ml/min/1.73 sqM); Anion Gap 7 mmol/L; Blood Urea Nitrogen 18 mg/dL (7-17); Calcium 9.4 mg/dL (8.4-10.2); Carbon Dioxide 25 mmol/L (22-30); Chloride 108 mmol/L (98-107); Glucose 193 mg/dL (74-99); Magnesium 1.6 mg/dL (1.6-2.3); Non-African American GFR(CKD) 58 (>60 ml/min/1.73 sqM); Potassium 4.2 mmol/L (3.5-5.1); Sodium 140 mmol/L (137-145)
--- NOTE | 2024-05-23 10:54 | P.PN ---
Subjective Progress Note Date: 05/23/24 Subjective: Patient was seen bedside. No acute events reported overnight. All Systems reviewed and pertinent positives and negatives noted in HPI, all other symptoms are negative Objective: Vital signs reviewed. General: Not in acute distress, resting comfortably in bed Eyes: PERRL, no scleral injection or icterus HENT: normocephalic, atraumatic, good hearing acuity, moist mucous membranes Neck: full range of motion Resp: CTAB, no rales, rhonchi, or wheezes CVS: normal S1 and S2, no murmurs, rubs or gallops, no edema GI: soft, NTTP, ND, no hepatosplenomegaly : no suprapubic tenderness, no CVAT MSK: no clubbing, no cyanosis, no noted contractures of extremities Skin: no noted rashes, petechiae; temperature of skin is appropriate Neuro: moving all extremities without signs of weakness, CN II-XII intact Psych: cooperative, euthymic mood, insight and judgment intact, AAOx3 Data reviewed today: Chest x-ray done on 05/23/2024 shows low lung volumes with generalized hazy appearance which could represent atelectasis versus pulmonary edema. No new imaging Assessment and Plan: 83-year-old female with PMH of CAD status post stenting, congestive heart failure (unknown), status post recent TAVR (05/08/2024) and pacemaker placement (05/10/2024), type 2 diabetes mellitus, hypertension, hyperlipidemia was admitted to the hospital for progressively worsening shortness of breath likely due to acute CHF exacerbation. Patient also reported new mid back pain over the past several weeks. 1. acute on chronic diastolic heart failure exacerbation NSTEMI, likely type II JUANA done on 05/21/2024 shows LVEF 55% with normally functioning bioprosthetic aortic valve. Status post balloon angioplasty to the left main stent on 05/21/24 Cardiology following; per cardiology patient can be discharged Strict I's and O's Daily weights Continue with Apirin 81mg p.o. daily Continue with pravastatin 40 mg p.o. at bedtime Continue with Plavix 75 mg p.o. daily Continue with aspirin 81 mg p.o. at bedtime Continue with Lasix 40mg po od; IV lasix is discontinued 2. Thoracic spine compression fractur T10 vertebral body compression fracture on thoracic aorta CT on 05/19/2024 Orthopedic surgery following PT/OT - patient is ambulatory with assistance Pain control with acetaminophen 650 mg p.o. every 6 hours as needed, lidocaine 4% 1 patch daily 3. Hypokalemia Maintained on Potassium 20mg po od Monitor Electrolytes 4. Normocytic anemia, likely due to multiple recent surgical procedures Hemoglobin 8.3 (trending down Hb 9.0 on 05/20/2024), MCV 87.3 No active bleeding Continue to monitor CBC Consider transfusion if hemoglobin less than 7.0 Type 2 diabetes -Sliding scale insulin, monitor for hypoglycemia Chronic problems Hypertension GERD Dyslipidemia Gout Resume Home Meds F: No IV fluids E: Replete PRN N: Heart healthy A: As tolerated DVT ppx: Heparin subcu Code Status: Full code Anticipated discharge place: home care vs intermediate Anticipated discharge date: Pending clinical course Patient was seen and examined by me and the resident. I agree with the subjective and objective as above. We discussed the assessment and plan as documented below: The case discussed extensively with family and patient at bedside. Patient with EF 55% transitioned to PO Lasix. History of TAVR 05/08 and Pacemaker 05/10. JUANA shows normal functioning prosthetic AV. Status post L main stent balloon angioplasty on 05/21. She continues to report exertional SOB. We discussed p ossible pulmonary cases to her dyspnea. She is 20 year PPD smoker. Likely history of COPD undiagnosed. Possible sleep apnea as well. Plans for discharge to [facility] today. Follow up with PCP within 1-2 days. Follow up with Cardiology, Orthospine and Pulmonary within 1 week. She may benefit from PFTs and sleep study. Prescription for Albuterol INH PRN and Symbicort sent to the pharmacy along with Lasix and KCl. Objective - Vital Signs Vital signs: Vital Signs Temp 97.5 F L 05/23/24 04:00 Pulse 66 05/23/24 04:00 Resp 16 05/23/24 04:00 BP 161/78 05/23/24 04:00 Pulse Ox 96 05/23/24 04:00 FiO2 Intake & Output 05/22/24 05/22/24 05/23/24 06:59 18:59 06:59 Intake Total 618 Output Total 200 800 Balance -200 -182 Weight 89.6 kg 89.6 kg Intake: Oral 618 Output: Urine 200 800 Other: Voiding Method Toilet Toilet - Labs CBC & Chem 7: 05/21/24 07:52 05/23/24 09:17 Labs: Abnormal Lab Results - Last 24 Hours (Table) 05/22/24 05/22/24 05/22/24 Range/Units 11:26 16:31 20:19 POC Glucose (mg/dL) 128 H 126 H 162 H (70-110) mg/dL Microbiology - Last 24 Hours (Table) 05/21/24 10:57 Blood Culture - Preliminary Blood
--- NOTE | 2024-05-23 10:55 | P.PN ---
Subjective Progress Note Date: 05/23/24 Reason for Consult (text): CHF, recent TAVR and pacemaker, elevated troponins History of present illness: This is an 83-year-old female patient of Dr. Son with past medical history of COPD, breast cancer, chronic diastolic heart failure, diabetes mellitus type 2, chronic kidney disease stage III history of stroke on Plavix, severe aortic stenosis status post TAVR at [facility] in April as well as pacemaker implantation following TAVR. Patient states that she has not felt well since she was in the hospital. She states that her breathing got bad and felt like she could not take a deep breath. She was also having difficulty breathing. Patient was started on IV Lasix states she is feeling better last evening but this morning she states she has some anxiety. She denies any problems at the groin site. Patient has noted to have anemia which appears to be new since February. Blood pressure 112/63, heart rate 65, pulse ox 97% on room air. Patient has been started on IV Lasix 40 mg every 12 hours. EKG: Ventricularly paced rhythm. Chest x-ray: Cardiomegaly, pulmonary vascular congestion and bilateral pleural effusions. CT angio thoracic and abdominal aorta, CT of the chest abdomen pelvis: T4 vertebral body buckling endplate deformity suggest compression fracture, similar T11 compression deformity. No aortic dissection, aneurysm mL dilation or pulmonary embolism. Complex cyst on the right ovary. Trace right pleural effusion cardiomegaly. Colonic diverticulosis. Laboratory studies: WBC 5.6, hemoglobin 9, platelet count 138. Sodium 139, potassium 4.2, BUN 17 and creatinine 0.91. Troponin 0.095, 0.099 and 0.094. proBNP 1960. Home cardiac medications: Aspirin 81 mg at bedtime, Coreg 25 mg twice daily, Plavix 75 mg daily, Farxiga 10 mg daily, Lasix 20 mg daily as needed, olmesartan 20 mg daily, pravastatin 40 mg at bedtime. UJANA performed on 03/20/2024 revealed aortic valve tricuspid with severe aortic stenosis with aortic valve area 0.6 cm, EF 55% Left heart catheterization 03/20/2024 revealed CAD with 90% left main stenosis with abnormal IFR left main and IVUS left main, status post PCI of the left main. TAVR 04/2024 at [facility] and ended up having pacemaker implantation post TAVR. Patient is ventricular paced 100%. 8/28 Yesterday, patient underwent a left heart catheterization with Dr. Son that revealed CAD with 40 to 50% left main stent stenosis, 50% mid LAD stenosis, elevated left-sided filling pressures, status post balloon angioplasty left main stent. Patient also underwent JUANA which revealed normally functioning bioprosthetic aortic valve without any aortic regurgitation, no paravalvular leak. There is no aortic dissection or echodensity on the aortic valve. Mitral valve is normal with mild regurgitation. Tricuspid valve normal. The interatrial septum is intact. Left atrial appendage is free of clot however there is an echodensity which appears to be artifact. EF 55%. Patient states that she woke up this morning feeling well but then subsequently developed shortness of breath. Blood pressure 145/68, heart rate 67, pulse ox 100% on room air. Creatinine 0.98. 05/23 Patient continues to not feel very well. Noted that blood pressure readings are high, 161/78, heart rate is in the 60s, pulse ox 96% on room air. Blood cultures are showing no growth at 24 hours. A chest x-ray was ordered which revealed low lung volumes generalized hazy appearance which could represent atelectasis versus pulmonary edema. Patient's lungs are clear to auscultation. For the elevated blood pressure, Coreg will be increased. Physical examination: Gen: This is an 83-year-old female appears to be in no acute distress. VS: reviewed HEENT: Head is atraumatic, normocephalic. Pupils equal, round. Sclerae is anicteric. NECK: Supple. No JVD. LUNGS: Clear to auscultation. No intercostal retractions. HEART: Regular rate and rhythm. No murmur. ABDOMEN: Soft No tenderness. EXTREMITIES: No pedal edema. Dorsalis pedis palpable bilaterally. No calf tenderness. NEUROLOGICAL: Patient is awake, alert and oriented x3. Assessment: Acute on chronic diastolic heart failure Elevated troponin most likely secondary to recent TAVR Severe aortic stenosis status post TAVR Status post pacemaker following TAVR Anemia Chronic kidney disease stage III History of stroke Chronic kidney disease stage III COPD History of breast cancer Plan: Continue patient's home cardiac medications Increase Coreg to 37.5 mg twice daily Continue Lasix oral 40 mg daily Patient is cleared for discharge from cardiology and will follow-up with Dr. Son in 1 week. Nurse practitioner note has been reviewed, I agree with documented findings and plan of care. Patient was seen and examined. Objective - Vital Signs Vital signs: Vital Signs Temp 97.5 F L 05/23/24 04:00 Pulse 66 05/23/24 04:00 Resp 16 05/23/24 04:00 BP 161/78 05/23/24 04:00 Pulse Ox 96 05/23/24 04:00 FiO2 Intake & Output 05/22/24 05/23/24 05/23/24 18:59 06:59 18:59 Intake Total 618 Output Total 800 Balance -182 Weight 89.6 kg Intake: Oral 618 Output: Urine 800 Other: Voiding Method Toilet # Voids 2 - Labs CBC & Chem 7: 05/21/24 07:52 05/23/24 09:17 Labs: Abnormal Lab Results - Last 24 Hours (Table) 05/22/24 05/22/24 05/22/24 Range/Units 11:26 16:31 20:19 POC Glucose (mg/dL) 128 H 126 H 162 H (70-110) mg/dL Microbiology - Last 24 Hours (Table) 05/21/24 10:57 Blood Culture - Preliminary Blood
[2024-05-23 11:30] VITALS: BP 128/66; PULSE 67; TEMP 97.6
[2024-05-23 11:43] LABS: Glucose,Whole Blood 183 mg/dL (70-110)
--- NOTE | 2024-05-23 16:36 | P.DS ---
Providers Date of admission: 05/19/24 20:14 Attending physician: Raman Cervantes MD Discharge Diagnosis: 1. Acute on chronic diastolic heart failure exacerbation 2. NSTEMI, likely type II 3. Thoracic spine compression fracture 4. Hypokalemia 5. 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 Patient reported that her symptoms started roughly a week ago and have gradually worsened. CT angiogram aorta in the emergency room was unremarkable aside from a T-spine compression fracture, suspected new (as reported by ED provider, unable to access report or images for CT angiogram). EKG revealed V paced rhythm at 72 bpm as reviewed by me. Chest x-ray did reveal some pulmonary congestion. Laboratory evaluation was remarkable for proBNP of 1960, troponin 0.095, hemoglobin 8.5 (down from baseline of 12 on 03/21), D-dimer 3.42. Patient was admitted for acute congestive heart failure exacerbation and T-spine compression fracture. Cardiology was consulted. Patient underwent a left heart catheterization on 05/[address] Son that revealed CAD with 40 to 50% left main stent stenosis, 50% mid LAD stenosis, elevated left-sided filling pressures, status post balloon angioplasty left main stent. Patient also underwent JUANA which revealed normally functioning bioprosthetic aortic valve without any aortic regurgitation, no paravalvular leak. There is no aortic dissection or echodensity on the aortic valve. Mitral valve is normal with mild regurgitation. Tricuspid valve normal. The interatrial septum is intact. Left atrial appendage is free of clot however there is an echodensity which appears to be artifact. EF is 55%. Blood pressure 145/68, heart rate 67, pulse ox 100% on room air. Orthopedic was consulted. No emergent orthopedic surgical intervention is recommended. Patient has recommended conservative management such as Tylenol. Patient is on many cardiac drugs so anti-inflammatories are not able to be utilized. Recommended rehabilitation. Patient seen at bedside today and reports no new concerns. Patient is stable and ready to be discharged. Patient is advised outpatient follow-up with PCP, cardiology and orthopedic as mentioned above. Vital signs reviewed. Gen: in no apparent distress, resting comfortably in bed Eyes: PERRL, no scleral injection or icterus HENT: normocephalic, atraumatic, good hearing acuity, moist mucous membranes Neck: full range of motion Resp: CTAB, no rales, rhonchi, or wheezes CVS: normal S1 and S2, no murmurs, rubs or gallops, no edema GI: soft, NTTP, ND, no hepatosplenomegaly : no suprapubic tenderness, no CVAT, mae catheter [is/not] present MSK: no clubbing, no cyanosis, no noted contractures of extremities Skin: no noted rashes, petechiae; temperature of skin is appropriate Neuro: moving all extremities without signs of weakness, CN II-XII intact Psych: cooperative, euthymic mood, insight and judgment intact Consults: 05/19/24 20:13 Consult Physician Routine Consulting Provider: Vijay Palacio Consult Reason/Comments: chf, recent TAVR and pacemaker. elevated troponin Do you want consulting provider notified?: Yes Consult Physician Routine Consulting Provider: Gael Gooden Consult Reason/Comments: chf. Recent TAVR, pacemaker placement Do you want consulting provider notified?: Yes 05/19/24 20:19 Consult Physician Routine Consulting Provider: Jacob Earl Consult Reason/Comments: t spine compression fracture Do you want consulting provider notified?: Yes 05/21/24 17:53 Consult Physician Routine Consulting Provider: Vijay Palacio Consult Reason/Comments: Post Interventional Patient Do you want consulting provider notified?: Already Contacted [facility] Patient was seen and examined by me and the resident. I agree with the subjective and objective as above. We discussed the assessment and plan as documented below: The case discussed extensively with family and patient at bedside. Patient with EF 55% transitioned to PO Lasix. History of TAVR 05/08 and Pacemaker 05/10. JUANA shows normal functioning prosthetic AV. Status post L main stent balloon angioplasty on 05/21. She continues to report exertional SOB. We discussed possible pulmonary cases to her dyspnea. She is 20 year PPD smoker. Likely history of COPD undiagnosed. Possible sleep apnea as well. Plans for discharge to [facility] today. Follow up with PCP within 1-2 days. Follow up with Cardiology, Orthospine and Pulmonary within 1 week. She may benefit from PFTs and sleep study. Prescription for Albuterol INH PRN and Symbicort sent to the pharmacy along with Lasix and KCl. Discharge Diagnosis: Acute on chronic diastolic heart failure exacerbation Type II NSTEMI Thoracic spine compression fracture Normocytic anemia, likely due to multiple recent surgical procedures Type 2 diabetes Hypertension GERD Dyslipidemia Gout This complex discharge took 35 minutes to complete. Patient Condition at Discharge: Stable Plan - Discharge Summary Discharge Rx Participant: No New Discharge Prescriptions: New Potassium Chloride ER [K-Dur 20] 20 meq PO DAILY 30 Days #30 tab Furosemide [Lasix] 40 mg PO DAILY 30 Days #30 tab Budesonide-Formot 160-4.5 Mcg [Symbicort 160-4.5 Mcg Inhaler] 2 puff INHALATION BID #1 each Albuterol Inhaler [Ventolin Hfa Inhaler] 1 puff INHALATION TID PRN #8 gm PRN Reason: Shortness Of Breath Continue allopurinoL 50 mg PO DAILY Multivitamins, Thera [Multivitamin (formulary)] 1 tab PO HS Vitamin K2 150 mcg PO DAILY Cinnamon Bark [Cinnamon] 1,000 - 2,000 mg PO DAILY Olmesartan Medoxomil 20 mg PO DAILY 30 Days #30 tab Clopidogrel [Plavix] 75 mg PO DAILY 30 Days #30 tab Pravastatin Sodium [Pravachol] 40 mg PO HS 30 Days #30 tab Omeprazole 20 mg PO HS Dapagliflozin Propanediol [Farxiga] 10 mg PO DAILY Aspirin EC [Ecotrin Low Dose] 81 mg PO HS Blauvelt-3/Dha/Epa/Fish Oil [Fish Oil 1,000 mg Softgel] 1 cap PO HS Cholecalciferol [Vitamin D3 (125 Mcg = 5000 Iu)] 125 mcg PO HS Calcium Carbonate [Calcium] 1,200 mg PO DAILY Changed carvediloL [Coreg] 37.5 mg PO BID 30 Days #60 tab Discontinued Furosemide [Lasix] 20 mg PO DAILY PRN PRN Reason: Edema Discharge Medication List Dapagliflozin Propanediol [Farxiga] 10 mg PO DAILY 03/18/24 [History] Omeprazole 20 mg PO HS 03/18/24 [History] allopurinoL 50 mg PO DAILY 03/18/24 [History] Aspirin EC [Ecotrin Low Dose] 81 mg PO HS 05/19/24 [History] Calcium Carbonate [Calcium] 1,200 mg PO DAILY 05/19/24 [History] Cholecalciferol [Vitamin D3 (125 Mcg = 5000 Iu)] 125 mcg PO HS 05/19/24 [History] Cinnamon Bark [Cinnamon] 1,000 - 2,000 mg PO DAILY 05/19/24 [History] Multivitamins, Thera [Multivitamin (formulary)] 1 tab PO HS 05/19/24 [History] Blauvelt-3/Dha/Epa/Fish Oil [Fish Oil 1,000 mg Softgel] 1 cap PO HS 05/19/24 [History] Vitamin K2 150 mcg PO DAILY 05/19/24 [History] Albuterol Inhaler [Ventolin Hfa Inhaler] 1 puff INHALATION TID PRN #8 gm 05/23/24 [Rx] Budesonide-Formot 160-4.5 Mcg [Symbicort 160-4.5 Mcg Inhaler] 2 puff INHALATION BID #1 each 05/23/24 [Rx] Clopidogrel [Plavix] 75 mg PO DAILY 30 Days #30 tab 05/23/24 [Rx] Furosemide [Lasix] 40 mg PO DAILY 30 Days #30 tab 05/23/24 [Rx] Olmesartan Medoxomil 20 mg PO DAILY 30 Days #30 tab 05/23/24 [Rx] Potassium Chloride ER [K-Dur 20] 20 meq PO DAILY 30 Days #30 tab 05/23/24 [Rx] Pravastatin Sodium [Pravachol] 40 mg PO HS 30 Days #30 tab 05/23/24 [Rx] carvediloL [Coreg] 37.5 mg PO BID 30 Days #60 tab 05/23/24 [Rx] Follow up Appointment(s)/Referral(s): Anthony Son DO [STAFF PHYSICIAN] - 1 Week Bjorn Glass MD [Primary Care Provider] - 1-2 days Baron Russell DO [Doctor of Osteopathic Medicine] - 1 Week Jacob Earl DO [Doctor of Osteopathic Medicine] - As Needed [facility] Visiting Nurse, [NON-STAFF] - Discharge Disposition: TRANSFER TO SNF/ECF
[2024-05-23] MEDS ORDERED: carvediloL 12.5 MG TAB PO SCH (17:30)
== END 2024-05-23 15:36 | DRG 250 ==
LOC: EC 16:08 → 3SCARD 20:13 → OBSVTOIN 20:14 → 3SCARD 20:42
PROVIDERS: ADMIT Internal Medicine; ATTEND Internal Medicine
PROC: B2111ZZ Fluoroscopy of Multiple Coronary Arteries using Low Osmolar Contrast (ICD-10-PCS; 2024-05-21)
PROC: B240ZZ3 Ultrasonography of Single Coronary Artery, Intravascular (ICD-10-PCS; 2024-05-21)
PROC: B24BZZ4 Ultrasonography of Heart with Aorta, Transesophageal (ICD-10-PCS; 2024-05-21)
PROC: 02703ZZ Dilation of Coronary Artery, One Artery, Percutaneous Approach (ICD-10-PCS; principal; 2024-05-21 11:00)
PROC: 4A023N7 Measurement of Cardiac Sampling and Pressure, Left Heart, Percutaneous Approach (ICD-10-PCS; 2024-05-21 11:00)
PROC: B2151ZZ Fluoroscopy of Left Heart using Low Osmolar Contrast (ICD-10-PCS; 2024-05-21 11:00)
DX: I13.0 Hypertensive heart and chronic kidney disease with heart failure and stage 1 through stage 4 chronic kidney disease, or unspecified chronic kidney disease (principal); I21.A1 Myocardial infarction type 2; I50.33 Acute on chronic diastolic (congestive) heart failure; M48.54XA Collapsed vertebra, not elsewhere classified, thoracic region, initial encounter for fracture; T82.855A Stenosis of coronary artery stent, initial encounter; I44.2 Atrioventricular block, complete; D63.1 Anemia in chronic kidney disease; E11.22 Type 2 diabetes mellitus with diabetic chronic kidney disease; Z95.3 Presence of xenogenic heart valve; J44.9 Chronic obstructive pulmonary disease, unspecified; N18.30 Chronic kidney disease, stage 3 unspecified; E87.6 Hypokalemia; M10.9 Gout, unspecified; M53.3 Sacrococcygeal disorders, not elsewhere classified; E78.5 Hyperlipidemia, unspecified; F41.9 Anxiety disorder, unspecified; G89.29 Other chronic pain; I25.10 Atherosclerotic heart disease of native coronary artery without angina pectoris; K21.9 Gastro-esophageal reflux disease without esophagitis; M54.50 Low back pain, unspecified; Y71.2 Prosthetic and other implants, materials and accessory cardiovascular devices associated with adverse incidents; Z95.5 Presence of coronary angioplasty implant and graft; Z98.1 Arthrodesis status; Z95.0 Presence of cardiac pacemaker; Z79.02 Long term (current) use of antithrombotics/antiplatelets; Z79.82 Long term (current) use of aspirin; Z79.899 Other long term (current) drug therapy; Z79.84 Long term (current) use of oral hypoglycemic drugs; Z85.3 Personal history of malignant neoplasm of breast; Z86.73 Personal history of transient ischemic attack (TIA), and cerebral infarction without residual deficits; Z87.891 Personal history of nicotine dependence; Z92.3 Personal history of irradiation; Z88.0 Allergy status to penicillin; Z88.8 Allergy status to other drugs, medicaments and biological substances
CPT/HCPCS: 36415; 71045; 71046; 71275; 74174; 80048; 80053; 81001; 82565; 83605; 83735; 83880; 84484; 85025; 85379; 85610; 85730; 87040; 92920; 92978; 93005; 93308; 93312; 93320; 93325; 93458; 94760; 96361; 96374; 99285